=== PATIENT | female | born 1985 | race Caucasian/White ===

== ENCOUNTER 2017-03-27 22:33 | Emergency (ER) | payer OTHER ==
[~2017-03-27] VITALS: Ht 170.2 cm; Wt 86.2 kg
[2017-03-27] MEDS ORDERED: DEXAMETHASONE SOD PHOS 20 MG/5 ML VIAL. PO ONE (23:00)
[2017-03-27] MEDS ORDERED: ALBUTEROL SULFATE 2.5 MG/3 ML NEBU. NEB ONE ×2 (23:00→23:45)
[2017-03-27] MEDS ORDERED: OXYMETAZOLINE 0.05% NASAL SPRAY 30ML BOTTLE. NS ONE (23:00)
[2017-03-27] MEDS ORDERED: IPRATRPIUM/ALBUTEROL 0.5/2.5MG 3 ML NEBU. NEB ONE (23:00)
--- NOTE | 2017-03-27 23:04 | PHYS DOC ---
Past Medical History Past Medical History: No Pertinent History Past Surgical History: Additional Information: 0.5 PPD Alcohol Use: None Drug Use: None Adult General Chief Complaint Chief Complaint: SHORTNESS OF BREATH HPI HPI Patient is a 31 year old female presenting to the emergency department for evaluation of cough and shortness of breath. She is a smoker and says that she has had a nonproductive cough for the past one week and then for the past 2 days she has been feeling more short of breath. She says that she has been smoking less. She denies any fevers chills nausea vomiting or other systemic symptoms. She says that she is healthy otherwise. She denies any inherent lung pathology such as asthma or COPD. She denies any prior pulmonary emboli. Review of Systems Review of Systems Constitutional: Denies fever or chills [] Eyes: Denies change in visual acuity, redness, or eye pain [] HENT: Denies nasal congestion or sore throat [] Respiratory: + cough and shortness of breath [] Cardiovascular: No additional information not addressed in HPI [] GI: Denies abdominal pain, nausea, vomiting, bloody stools or diarrhea [] : Denies dysuria or hematuria [] Musculoskeletal: Denies back pain or joint pain [] Integument: Denies rash or skin lesions [] Neurologic: Denies headache, focal weakness or sensory changes [] Current Medications Current Medications Current Medications Medications (Trade) Dose Ordered Sig/Francesco Start Time Stop Time Status Last Admin Dose Admin Albuterol Sulfate (Ventolin Neb Soln) 7.5 mg 1X ONCE 03/27/17 23:45 03/27/17 23:46 DC Albuterol/ Ipratropium (Duoneb) 3 ml 1X ONCE 03/27/17 23:00 03/27/17 23:01 DC 03/27/17 22:59 3 ML Azithromycin (Zithromax) 500 mg 1X ONCE 03/27/17 23:45 03/27/17 23:46 DC 03/27/17 23:39 500 MG Dexamethasone Sodium Phosphate (Decadron) 10 mg 1X ONCE 03/27/17 23:00 03/27/17 23:01 DC 03/27/17 23:00 10 MG Diphenhydramine HCl (Benadryl) 25 mg 1X ONCE 03/27/17 23:45 03/27/17 23:46 DC 03/27/17 23:39 25 MG Oxymetazoline HCl (Afrin) 2 spray 1X ONCE 03/27/17 23:00 03/27/17 23:01 DC 03/27/17 23:00 2 SPRAY Allergies Allergies Allergies Coded Allergies Type Severity Reaction Last Updated Verified No Known Drug Allergies 03/27/17 No Physical Exam Physical Exam Constitutional: Well developed, well nourished, no acute distress, non-toxic appearance. [] HENT: Normocephalic, atraumatic, bilateral external ears normal, oropharynx moist, no oral exudates, nose normal. [] Eyes: PERRLA, EOMI, conjunctiva normal, no discharge. [] Neck: Normal range of motion, no tenderness, supple, no stridor. [] Cardiovascular:Heart rate regular rhythm, no murmur [] Lungs & Thorax: Bilateral breath sounds diminished bilaterally with inspiratory and expiratory wheezing. Abdomen: Bowel sounds normal, soft, no tenderness, no masses, no pulsatile masses. [] Skin: Warm, dry, no erythema, no rash. [] Back: No tenderness, no CVA tenderness. [] Extremities: No tenderness, no cyanosis, no clubbing, ROM intact, no edema. [] Neurologic: Alert and oriented X 3, normal motor function, normal sensory function, no focal deficits noted. [] Current Patient Data Vital Signs Vital Signs Date Time Temp Pulse Resp B/P (MAP) Pulse Ox O2 Delivery O2 Flow Rate FiO2 03/27/17 23:05 95 Room Air 03/27/17 22:40 98.6 91 18 140/83 (102) 98.6 EKG EKG [] Radiology/Procedures Radiology/Procedures Chest x-ray shows normal mediastinum normal heart size with no free air or opacity Course & Med Decision Making Course & Med Decision Making Patient is somewhat hypoxic on room air she is anywhere from 87-92% however her lung sounds are quite abnormal. I do not suspect pulmonary embolism as the etiology to her shortness of breath. After a DuoNeb and 5 mg of albuterol and a by mouth Decadron she has improved aeration of her lungs but still definite wheezing and restriction. HerOption saturation continues to be in the 87-90% range but she appears in no acute distress and admits that she feels much better. I will order an hour-long continuous albuterol treatment. I will transfer care to Dr. Muhammad and have him dispositioned patient appropriately. Dragon Disclaimer Dragon Disclaimer This electronic medical record was generated, in whole or in part, using a voice recognition dictation system. Departure Departure Impression: Primary Impression: URI (upper respiratory infection) Additional Impression: Wheezing Disposition: HOME, SELF-CARE Referrals: NO PCP (PCP) Problem Qualifiers Primary Impression: URI (upper respiratory infection) URI type: unspecified viral URI Qualified Codes: J06.9 - Acute upper respiratory infection, unspecified; B97.89 - Other viral agents as the cause of diseases classified elsewhere VANNESSA HURD DO March 27, 2017 23:04
[2017-03-27] MEDS ORDERED: AZITHROMYCIN 250 MG TABLET. PO ONE (23:45)
[2017-03-27] MEDS ORDERED: diphenhydrAMINE HCL 25 MG CAPSULE PO ONE (23:45)
[2017-03-28 01:30] VITALS: BP 149/79
[2017-03-28] MEDS ORDERED: RACEPINEPHRINE 2.25% 0.5 ML NEBU. NEB ONE (01:45)
--- NOTE | 2017-03-28 08:46 | RAD ---
Examination: 2 views of the chest History: History of cough, shortness of breath Comparison: 03/04/2007 Findings: The cardiomediastinal silhouette grossly appears unremarkable. Mild prominent appearing bilateral perihilar bronchial vascular markings probably bronchitis. Impression: Probable bronchitis
== END 2017-03-28 02:11 | disposition home or self-care (01) ==
LOC: ER 22:33
DX: J06.9 Acute upper respiratory infection, unspecified (principal); R06.2 Wheezing; J45.901 Unspecified asthma with (acute) exacerbation; F17.200 Nicotine dependence, unspecified, uncomplicated
CPT/HCPCS: 71020; 94250; 94640; 94644; 99285; J1100; J7620; Q0144; Q0163

== ENCOUNTER 2017-04-13 02:14 | Emergency (ER) | payer OTHER ==
[~2017-04-13] VITALS: Ht 170.2 cm; Wt 86.2 kg
[2017-04-13] MEDS ORDERED: IV NORMAL SALINE 1000ML BAG 1,000 ML IV SCH (02:48)
[2017-04-13] MEDS ORDERED: ALBUTEROL SULFATE 2.5 MG/3 ML NEBU. ONE (02:50)
[2017-04-13] MEDS ORDERED: IPRATRPIUM/ALBUTEROL 0.5/2.5MG 3 ML NEBU. ONE (02:50)
[2017-04-13] MEDS ORDERED: ALBUTEROL SULFATE 2.5 MG/3 ML NEBU. CONT NEB ONE (03:00)
[2017-04-13] MEDS ORDERED: methylPREDNISolone SOD SUCC PF 125 MG/2 ML VIAL. IV ONE (03:00)
[2017-04-13] MEDS ORDERED: IPRATRPIUM/ALBUTEROL 0.5/2.5MG 3 ML NEBU. NEB ONE (03:00)
[2017-04-13 03:42] LABS: BASO # 0.1 x10^3/uL (0.0-0.2); BASO % 1 % (0-3); EOS % 5 % (0-3); HEMATOCRIT 42.4 % (36.0-47.0); HEMOGLOBIN 14.1 g/dL (12.0-15.5); LYMPH # 3.2 x10^3/uL (1.0-4.8); LYMPH % 26 % (24-48); MEAN CORPUSCULAR HEMOGLOBIN 30 pg (25-35); MEAN CORPUSCULAR HGB CONC 33 g/dL (31-37); MEAN CORPUSCULAR VOLUME 91 fL (79-100); MONO % 5 % (0-9); NEUT % 63 % (31-73); PLATELET COUNT 251 x10^3/uL (140-400); RED BLOOD COUNT 4.68 x10^6/uL (3.50-5.40); RED CELL DISTRIBUTION WIDTH 13.7 % (11.5-14.5); WHITE BLOOD COUNT 12.1 x10^3/uL (4.0-11.0)
[2017-04-13 03:48] LABS: BILIRUBIN,URINE NEGATIVE (NEG); GLUCOSE,URINE NEGATIVE (NEG); NITRITE,URINE NEGATIVE (NEG); PH,URINE 6.5; PROTEIN,URINE NEGATIVE (NEG-TRACE); UROBILINOGEN,URINE 0.2 mg/dL (0.2 mg/dL)
[2017-04-13 03:55] LABS: BACTERIA,URINE MANY /HPF (0-FEW); RBC,URINE 0 /HPF (0-2); SQUAMOUS EPITHELIAL CELL,UR MOD /LPF
[2017-04-13 03:57] LABS: CALCIUM 8.8 mg/dL (8.5-10.1); CREATININE 0.9 mg/dL (0.6-1.0); POTASSIUM 3.6 mmol/L (3.5-5.1)
[2017-04-13 04:02] LABS: ALBUMIN 3.6 g/dL (3.4-5.0); TOTAL BILIRUBIN 0.3 mg/dL (0.2-1.0); TOTAL PROTEIN 7.2 g/dL (6.4-8.2)
[2017-04-13 04:30] VITALS: BP 143/85
--- NOTE | 2017-04-13 04:33 | PHYS DOC ---
Past Medical History Past Medical History: No Pertinent History Past Surgical History: Alcohol Use: None Drug Use: None Adult General Chief Complaint Chief Complaint: Congestion HPI HPI Patient is a 31 year old female who presents with complaint of cough and shortness of breath. Patient states that she was seen 2 weeks ago and diagnosed with an upper respiratory tract infection and asthma-like symptoms. Patient was placed on 5 days of prednisone and given an inhaler. Patient states her symptoms have not improved and patient started getting worsening symptoms over the past 3-4 days. Patient denies history of asthma. Patient does admit to history of smoking, stating that she smokes approximately half a pack of cigarettes a day. Patient denies fevers or chest pain. Patient has been taking cough medication with no relief in symptoms. Review of Systems Review of Systems Constitutional: Denies fever or chills [] Eyes: Denies change in visual acuity, redness, or eye pain [] HENT: Denies nasal congestion or sore throat [] Respiratory: Cough, shortness of breath [] Cardiovascular: Denies chest pain or edema [] GI: Denies abdominal pain, nausea, vomiting, bloody stools or diarrhea [] : Denies dysuria or hematuria [] Musculoskeletal: Denies back pain or joint pain [] Integument: Denies rash or skin lesions [] Neurologic: Denies headache, focal weakness or sensory changes [] Current Medications Current Medications Current Medications Medications (Trade) Dose Ordered Sig/Francesco Start Time Stop Time Status Last Admin Dose Admin Albuterol Sulfate (Ventolin Neb Soln) 7.5 mg 1X ONCE 04/13/17 03:00 04/13/17 03:01 DC 04/13/17 02:59 7.5 MG Albuterol/ Ipratropium (Duoneb) 3 ml 1X ONCE 04/13/17 03:00 04/13/17 03:01 DC 04/13/17 02:59 3 ML Methylprednisolone Sodium Succinate (SOLU-Medrol 125MG VIAL) 125 mg 1X ONCE 04/13/17 03:00 04/13/17 03:01 DC 04/13/17 03:19 125 MG Sodium Chloride 1,000 ml @ 1,000 mls/hr Q1H 04/13/17 02:48 04/13/17 03:47 DC 04/13/17 03:19 1,000 MLS/HR Allergies Allergies Allergies Coded Allergies Type Severity Reaction Last Updated Verified No Known Drug Allergies 03/27/17 No Physical Exam Physical Exam Constitutional: Alert, afebrile, appears in moderate esterase distress. [] HENT: Normocephalic, atraumatic, bilateral external ears normal, oropharynx moist, no oral exudates, nose normal. [] Eyes: PERRLA, EOMI, conjunctiva normal, no discharge. [] Neck: Normal range of motion, no tenderness, supple, no stridor. [] Cardiovascular:Heart rate regular rhythm, no murmur [] Lungs & Thorax: Moderate to severe restriction of air movement bilaterally, expiratory wheezes bilaterally, no rales [] Abdomen: Bowel sounds normal, soft, no tenderness, no masses, no pulsatile masses. [] Skin: Warm, dry, no erythema, no rash. [] Back: No tenderness, no CVA tenderness. [] Extremities: No tenderness, no cyanosis, no clubbing, ROM intact, no edema. [] Neurologic: Alert and oriented X 3, normal motor function, normal sensory function, no focal deficits noted. [] Current Patient Data Vital Signs Vital Signs Date Time Temp Pulse Resp B/P (MAP) Pulse Ox O2 Delivery O2 Flow Rate FiO2 04/13/17 02:56 87 Room Air 04/13/17 02:45 98.3 77 18 126/82 (97) 98.3 Lab Values Laboratory Tests Test 04/13/17 02:16 04/13/17 03:04 04/13/17 03:10 POC Urine HCG, Qualitative Hcg negative (Negative) White Blood Count 12.1 x10^3/uL (4.0-11.0) H Red Blood Count 4.68 x10^6/uL (3.50-5.40) Hemoglobin 14.1 g/dL (12.0-15.5) Hematocrit 42.4 % (36.0-47.0) Mean Corpuscular Volume 91 fL (79-100) Mean Corpuscular Hemoglobin 30 pg (25-35) Mean Corpuscular Hemoglobin Concent 33 g/dL (31-37) Red Cell Distribution Width 13.7 % (11.5-14.5) Platelet Count 251 x10^3/uL (140-400) Neutrophils (%) (Auto) 63 % (31-73) Lymphocytes (%) (Auto) 26 % (24-48) Monocytes (%) (Auto) 5 % (0-9) Eosinophils (%) (Auto) 5 % (0-3) H Basophils (%) (Auto) 1 % (0-3) Neutrophils # (Auto) 7.6 x10^3uL (1.8-7.7) Lymphocytes # (Auto) 3.2 x10^3/uL (1.0-4.8) Monocytes # (Auto) 0.7 x10^3/uL (0.0-1.1) Eosinophils # (Auto) 0.6 x10^3/uL (0.0-0.7) Basophils # (Auto) 0.1 x10^3/uL (0.0-0.2) Sodium Level 144 mmol/L (136-145) Potassium Level 3.6 mmol/L (3.5-5.1) Chloride Level 106 mmol/L (98-107) Carbon Dioxide Level 27 mmol/L (21-32) Anion Gap 11 (6-14) Blood Urea Nitrogen 10 mg/dL (7-20) Creatinine 0.9 mg/dL (0.6-1.0) Estimated GFR (Cockcroft-Gault) 74.0 BUN/Creatinine Ratio 11 (6-20) Glucose Level 120 mg/dL (70-99) H Calcium Level 8.8 mg/dL (8.5-10.1) Total Bilirubin 0.3 mg/dL (0.2-1.0) Aspartate Amino Transferase (AST) 18 U/L (15-37) Alanine Aminotransferase (ALT) 28 U/L (14-59) Alkaline Phosphatase 79 U/L (46-116) Total Protein 7.2 g/dL (6.4-8.2) Albumin 3.6 g/dL (3.4-5.0) Albumin/Globulin Ratio 1.0 (1.0-1.7) Urine Collection Type Unknown Urine Color Yellow Urine Clarity Clear Urine pH 6.5 Urine Specific [place] 1.025 Urine Protein Negative mg/dL (NEG-TRACE) Urine Glucose (UA) Negative mg/dL (NEG) Urine Ketones (Stick) Negative mg/dL (NEG) Urine Blood Negative (NEG) Urine Nitrite Negative (NEG) Urine Bilirubin Negative (NEG) Urine Urobilinogen Dipstick 0.2 mg/dL (0.2 mg/dL) Urine Leukocyte Esterase Small (NEG) Urine RBC 0 /HPF (0-2) Urine WBC 5-10 /HPF (0-4) Urine Squamous Epithelial Cells Mod /LPF Urine Bacteria Many /HPF (0-FEW) Urine Mucus Mod /LPF Laboratory Tests 04/13/17 03:04 Laboratory Tests 04/13/17 03:04 EKG EKG Interpreted by me: Heart rate 73, sinus rhythm, normal intervals, normal axis, no acute ST/T-wave abnormalities present Radiology/Procedures Radiology/Procedures One view AP chest x-ray interpreted by me: No infiltrate, no effusions, normal cardiac silhouette [] Course & Med Decision Making Course & Med Decision Making Pertinent Labs and Imaging studies reviewed. (See chart for details) Patient was found to have an O2 sat on room air of 87% on arrival was placed on supplemental oxygen. The patient was given an hour-long breathing treatment and IV Solu-Medrol in the emergency department. On reevaluation post treatment, the patient had a oxygen saturation of 93% and patient's breath sounds have improved after treatment. The patient does not wish to be admitted the hospital and would like to proceed with outpatient therapy. The patient will be placed on an extended prednisone taper and patient will be started on doxycycline due to persistence of symptoms and possibility for developing atypical pneumonia. Advise follow-up in 3 days a primary doctor and return to emergency department for any worsening symptoms. Patient voiced understanding and in agreement with treatment plan. Dragon Disclaimer Dragon Disclaimer This electronic medical record was generated, in whole or in part, using a voice recognition dictation system. Departure Departure Impression: Primary Impression: Respiratory distress Additional Impression: Atypical pneumonia Disposition: 01 HOME, SELF-CARE Condition: IMPROVED Referrals: NO PCP (PCP) Patient Instructions: Asthma, Acute Bronchospasm, Pneumonia, Adult Additional Instructions: Follow-up to primary doctor in 3 days for reevaluation. Return to the emergency department for any worsening symptoms. Scripts Doxycycline Hyclate (DOXYCYCLINE HYCLATE) 100 Mg Capsule 1 CAP PO BID, #20 CAP Prov: BALDEV EGAN MD 04/13/17 Albuterol Sulfate (PROAIR HFA INHALER) 8.5 Gm Hfa.aer.ad 2 PUFF INH Q4-6HRS Y for SHORTNESS OF BREATH, #1 INHALER 0 Refills Prov: BALDEV EGAN MD 04/13/17 Prednisone (PREDNISONE) 10 Mg Tablet 10 MG PO UD for PREDNISONE TAPER, #39 TAB 0 Refills Take 3 tablets by mouth twice a day for 3 days, then take 2 tablets by mouth twice a day for 3 days, then take 1 tablet by mouth twice a day for 3 days, then take 1 tablet by mouth daily x 3 days, then stop. Prov: BALDEV EGAN MD 04/13/17 Problem Qualifiers BALDEV EGAN MD April 13, 2017 04:32
[2017-04-13] MEDS ORDERED: DOXY100C2 PO (04:51)
[2017-04-13] MEDS ORDERED: PRED-220 PO (04:51)
[2017-04-13] MEDS ORDERED: PROAIR HFA8.5 GM INH (04:51)
--- NOTE | 2017-04-13 07:36 | EKG ---
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
--- NOTE | 2017-04-13 07:46 | RAD ---
Portable AP chest. History: Cough, short of breath AP view was taken of the chest. Lungs are free of infiltrates. Heart is normal in size. There is no pleural effusion. Impression: 1. No acute infiltrates.
== END 2017-04-13 05:05 | disposition home or self-care (01) ==
LOC: ER 02:14
DX: R06.00 Dyspnea, unspecified (principal); J18.9 Pneumonia, unspecified organism
CPT/HCPCS: 36415; 71010; 80053; 81001; 81025; 85027; 87086; 93005; 94250; 94644; 96361; 96374; 99285; J2930; J7030; J7620; 84703; 96360

== ENCOUNTER 2017-05-14 14:16 | Observation (INO) | payer OTHER ==
[~2017-05-14] VITALS: Ht 170.2 cm; Wt 79.8 kg
[~2017-05-14 14:16] MED LIST: DOXY100C2 PO; PRED-220 PO; PROAIR HFA8.5 GM INH
[2017-05-14] MEDS ORDERED: ALBUTEROL SULFATE 2.5 MG/3 ML NEBU. CONT NEB ONE (14:45)
[2017-05-14] MEDS ORDERED: IPRATRPIUM/ALBUTEROL 0.5/2.5MG 3 ML NEBU. NEB ONE (14:45)
[2017-05-14] MEDS ORDERED: DEXAMETHASONE SOD PHOS 20 MG/5 ML VIAL. IV ONE (14:45)
[2017-05-14 15:11] LABS: BASO # 0.1 x10^3/uL (0.0-0.2); BASO % 1 % (0-3); EOS % 6 % (0-3); HEMOGLOBIN 14.6 g/dL (12.0-15.5); LYMPH # 2.3 x10^3/uL (1.0-4.8); LYMPH % 25 % (24-48); MEAN CORPUSCULAR HEMOGLOBIN 30 pg (25-35); MEAN CORPUSCULAR HGB CONC 34 g/dL (31-37); MEAN CORPUSCULAR VOLUME 90 fL (79-100); MONO % 8 % (0-9); NEUT % 61 % (31-73); PLATELET COUNT 288 x10^3/uL (140-400); RED CELL DISTRIBUTION WIDTH 13.6 % (11.5-14.5)
[2017-05-14 15:30] LABS: CALCIUM 8.9 mg/dL (8.5-10.1); CREATININE 0.9 mg/dL (0.6-1.0); POTASSIUM 3.8 mmol/L (3.5-5.1)
--- NOTE | 2017-05-14 15:31 | EKG ---
[facility] [address] [place] [address] Test Date: 2017-05-14 Test Time: 14:28:58 Pat Name: KASSIE RODRIGUEZ Department: Room: Gender: F Demand Inspector: : 1985 Requested By: NASREEN SOLIMAN Order Number: [id number] Reading MD: Aleena Sandhu Measurements Intervals [place] Rate: 80 P: 33 [place]: 134 QRS: 57 QRSD: 80 T: 0 QT: 394 QTc: 458 Interpretive Statements SINUS RHYTHM NORMAL EKG Electronically Signed On 05-16-2017 14:10:30 CDT by Aleena Sandhu
--- NOTE | 2017-05-14 15:40 | PHYS DOC ---
Past Medical History Past Medical History: Pancreatitis Past Surgical History: Additional Past Surgical Histo: X2 Additional Information: 0.5 PPD Alcohol Use: None Drug Use: None Adult General Chief Complaint Chief Complaint: SHORTNESS OF BREATH HPI HPI Patient is a 31 year old female with history of smoking and shortness of breath who presents today with intermittent episodes of shortness of breath for the last 1 month. Patient states she was seen in the ED on April 13 for the same complaint and was sent home with a tapered dose of prednisone. Patient states she was also sent home with albuterol inhaler. Patient states she ran out of her inhaler 2 days ago. Patient states she does not follow up with a PCP because she does not have one. Patient denies any chest pain. Patient is also complaining of a productive cough for 1 week. Review of Systems Review of Systems Constitutional: Denies fever or chills [] Eyes: Denies change in visual acuity, redness, or eye pain [] HENT: Denies nasal congestion or sore throat [] Respiratory: cough and shortness of breath [] Cardiovascular: No additional information not addressed in HPI [] GI: Denies abdominal pain, nausea, vomiting, bloody stools or diarrhea [] : Denies dysuria or hematuria [] Musculoskeletal: Denies back pain or joint pain [] Integument: Denies rash or skin lesions [] Neurologic: Denies headache, focal weakness or sensory changes [] Endocrine: Denies polyuria or polydipsia [] Current Medications Current Medications Current Medications Medications (Trade) Dose Ordered Sig/Francesco Start Time Stop Time Status Last Admin Dose Admin Albuterol Sulfate (Ventolin Neb Soln) 10 mg 1X ONCE 05/14/17 14:45 05/14/17 14:46 DC 05/14/17 14:47 10 MG Albuterol/ Ipratropium (Duoneb) 3 ml 1X ONCE 05/14/17 14:45 05/14/17 14:46 DC 05/14/17 14:47 3 ML Dexamethasone Sodium Phosphate (Decadron) 10 mg 1X ONCE 05/14/17 14:45 05/14/17 14:46 DC 05/14/17 15:02 10 MG Allergies Allergies Allergies Coded Allergies Type Severity Reaction Last Updated Verified No Known Drug Allergies 03/27/17 No Physical Exam Physical Exam Constitutional: Well developed, well nourished, no acute distress, non-toxic appearance. [] HENT: Normocephalic, atraumatic, bilateral external ears normal, oropharynx moist, no oral exudates, nose normal. [] Eyes: PERRLA, EOMI, conjunctiva normal, no discharge. [] Neck: Normal range of motion, no tenderness, supple, no stridor. [] Cardiovascular:Heart rate regular rhythm, no murmur [] Lungs & Thorax: Diffuse wheezing to bilateral posterior upper and lower lung bases. Wheezing to the anterior upper lung bases, very limited air movement. Abdomen: Bowel sounds normal, soft, no tenderness, no masses, no pulsatile masses. [] Skin: Warm, dry, no erythema, no rash. [] Back: No tenderness, no CVA tenderness. [] Extremities: No tenderness, no cyanosis, no clubbing, ROM intact, no edema. [] Neurologic: Alert and oriented X 3, normal motor function, normal sensory function, no focal deficits noted. [] Psychologic: Affect normal, judgement normal, mood normal. [] Current Patient Data Vital Signs Vital Signs Date Time Temp Pulse Resp B/P (MAP) Pulse Ox O2 Delivery O2 Flow Rate FiO2 05/14/17 15:09 83 29 120/80 (93) 96 Room Air 05/14/17 14:21 98.4 98.4 Lab Values Laboratory Tests Test 05/14/17 14:44 White Blood Count 9.0 x10^3/uL (4.0-11.0) Red Blood Count 4.80 x10^6/uL (3.50-5.40) Hemoglobin 14.6 g/dL (12.0-15.5) Hematocrit 43.0 % (36.0-47.0) Mean Corpuscular Volume 90 fL (79-100) Mean Corpuscular Hemoglobin 30 pg (25-35) Mean Corpuscular Hemoglobin Concent 34 g/dL (31-37) Red Cell Distribution Width 13.6 % (11.5-14.5) Platelet Count 288 x10^3/uL (140-400) Neutrophils (%) (Auto) 61 % (31-73) Lymphocytes (%) (Auto) 25 % (24-48) Monocytes (%) (Auto) 8 % (0-9) Eosinophils (%) (Auto) 6 % (0-3) H Basophils (%) (Auto) 1 % (0-3) Neutrophils # (Auto) 5.5 x10^3uL (1.8-7.7) Lymphocytes # (Auto) 2.3 x10^3/uL (1.0-4.8) Monocytes # (Auto) 0.7 x10^3/uL (0.0-1.1) Eosinophils # (Auto) 0.5 x10^3/uL (0.0-0.7) Basophils # (Auto) 0.1 x10^3/uL (0.0-0.2) Sodium Level 142 mmol/L (136-145) Potassium Level 3.8 mmol/L (3.5-5.1) Chloride Level 107 mmol/L (98-107) Carbon Dioxide Level 25 mmol/L (21-32) Anion Gap 10 (6-14) Blood Urea Nitrogen 7 mg/dL (7-20) Creatinine 0.9 mg/dL (0.6-1.0) Estimated GFR (Cockcroft-Gault) 74.0 Glucose Level 97 mg/dL (70-99) Calcium Level 8.9 mg/dL (8.5-10.1) Creatine Kinase 213 U/L (26-192) H Creatine Kinase MB (Mass) 2.1 ng/mL (0.0-3.6) Creatine Kinase MB Relative Index 1.0 % (0-4) Troponin I Quantitative < 0.017 ng/mL (0.000-0.055) Ethyl Alcohol Level < 10 mg/dL (0-10) Laboratory Tests 05/14/17 14:44 Laboratory Tests 05/14/17 14:44 EKG EKG 14:[address] Degroot sinus rhythm, inverted nonspecific T waves on lead III and aVF. Radiology/Procedures Radiology/Procedures [] Course & Med Decision Making Course & Med Decision Making Pertinent Labs and Imaging studies reviewed. (See chart for details) Shortness of breath has been going on for month and a cough for 1 week. She is a smoker. We did encourage to consider smoking cessation. EKG interpreted by Dr. Degroot sinus rhythm, inverted nonspecific T waves on lead III and aVF. Patient was short of air on arrival to the ED, barely moving air and wheezing diffusely. Chest x-ray interpreted by radiologist as negative for any acute findings. CBC BMP CK-MB and troponin were normal. Patient was given a DuoNeb treatment and Decadron IV in the ED. She continued to complain of shortness of breath. She was still wheezing after one hour treatment. Her O2 sats improved from 92% on arrival to the ED to 97%. Consulted with Dr. Goodwin and patient was admitted Dragon Disclaimer Dragon Disclaimer This electronic medical record was generated, in whole or in part, using a voice recognition dictation system. Departure Departure Impression: Primary Impression: Asthma exacerbation Additional Impressions: Smoking addiction Shortness of breath Disposition: ADMITTED INPATIENT Admitting Physician: Lo Goodwin Condition: STABLE Referrals: NO PCP (PCP) Problem Qualifiers NASREEN SOLIMAN MARKETING SALES CONSULTANT May 14, 2017 15:40
[2017-05-14 15:46] LABS: CKMB MASS 2.1 ng/mL (0.0-3.6)
--- NOTE | 2017-05-14 15:50 | RAD ---
Indication: Shortness of breath. Time of exam 1540 hours. Correlation is made with prior study from 04/13/2017 FINDINGS: The heart size is normal. The lungs are clear. No pleural effusion or pneumothorax is identified. The pulmonary vascularity is normal. IMPRESSION: No acute abnormality detected.
[2017-05-14] MEDS ORDERED: ONDANSETRON PF 4 MG/2 ML VIAL. IV PRN (16:45)
[2017-05-14] MEDS ORDERED: ACETAMINOPHEN 325 MG TABLET. PO PRN (16:45)
[2017-05-14] MEDS ORDERED: IBUPROFEN 800 MG TABLET. PO PRN (16:45)
[2017-05-14 18:22] LABS: BARBITURATES NEG (NEG); BENZODIAZEPINES NEG (NEG); CANNABINOIDS NEG (NEG); COCAINE NEG (NEG); METHADONE NEG (NEG); OPIATES NEG (NEG); PHENCYCLIDINE NEG (NEG)
[2017-05-14 18:45] VITALS: BP 111/80
[2017-05-14] MEDS ORDERED: IPRATRPIUM/ALBUTEROL 0.5/2.5MG 3 ML NEBU. NEB SCH (20:00)
[2017-05-14] MEDS ORDERED: BUDESONIDE 0.5 MG/2 ML NEBU. NEB ONE (21:00)
[2017-05-14] MEDS: BENZONATATE 100 MG CAPSULE. PO PRN (21:53)
[2017-05-14] MEDS: methylPREDNISolone SOD SUCC PF 125 MG/2 ML VIAL. IV SCH (21:54)
[2017-05-14] MEDS ORDERED: ALBUTEROL SULFATE 2.5 MG/3 ML NEBU. NEB PRN (22:00)
[2017-05-14] MEDS: IPRATRPIUM/ALBUTEROL 0.5/2.5MG 3 ML NEBU. NEB SCH (22:00)
--- NOTE | 2017-05-14 22:04 | PDOC1 ---
History and Physical Date of Admission Date of Admission DATE: 05/14/17 TIME: 21:56 Identification/Chief Complaint Chief Complaint dyspnea, wheeze Problems: Source Source: Chart review, Patient History of Present Illness History of Present Illness Ms. Nguyen, is a 31 year old female admit from ER for acute dyspnea. She has been to the ER mult times, was last there april 13, given prednisone taper, albuterol inhaler, she reports the inhaler "has run out' She has not established care with a PCP and does cont. to smoke. She works at [employer], not in a smoking area, but where things are steam cleaned, and this normally does not bother her. Past Medical History Past Medical History EtOH pancreatitis years ago Pulmonary: Other GI: No pertinent hx Heme/Onc: No pertinent hx Hepatobiliary: No pertinent hx Psych: Addictions (cig) Rheumatologic: No pertinent hx Infectious disease: No pertinent hx ENT: No pertinent hx Endocrine: No pertinent hx Family History Family History: Asthma (reports 4 persons in the room with her had asthma) Social History Smoke: <1 pack per day ALCOHOL: none Drugs: None Current Problem List Problem List Problems Medical Problems: (1) Asthma exacerbation Status: Acute (2) Shortness of breath Status: Acute (3) Smoking addiction Status: Acute Problems: Current Medications Current Medications Current Medications Dexamethasone Sodium Phosphate (Decadron) 10 mg 1X ONCE IV Last administered on 05/14/17 15:02; Start 05/14/17 at 14:45; Stop 05/14/17 at 14:46; Status DC Albuterol/ Ipratropium (Duoneb) 3 ml 1X ONCE NEB Last administered on 14:47; Start 05/14/17 at 14:45; Stop 05/14/17 at 14:46; Status DC Albuterol Sulfate (Ventolin Neb Soln) 10 mg 1X ONCE CONT NEB Last administered on 05/14/17 14:47; Start 05/14/17 at 14:45; Stop 05/14/17 at 14:46 ; Status DC Ondansetron HCl (Zofran) 4 mg PRN Q8HRS PRN IV NAUSEA/VOMITING; Start 05/14/17 at 16:45; Stop 05/15/17 at 16:44 Acetaminophen (Tylenol) 650 mg PRN Q4HRS PRN PO FEVER; Start 05/14/17 at 16:45 ; Stop 05/15/17 at 16:44 Albuterol/ Ipratropium (Duoneb) 3 ml RTQID NEB Last administered on 05/14/17 19:32; Start 05/14/17 at 20:00; Stop 05/14/17 at 21:01; Status DC Methylprednisolone Sodium Succinate (SOLU-Medrol 125MG VIAL) 80 mg Q8HRS IV Last administered on 05/14/17 21:54; Start 05/14/17 at 22:00 Ibuprofen (Motrin) 800 mg PRN Q8HRS PRN PO pain; Start 05/14/17 at 16:45 Benzonatate (Tessalon Perle) 100 mg PRN TID PRN PO cough Last administered on 21:53; Start 05/14/17 at 16:45 Albuterol/ Ipratropium (Duoneb) 3 ml Q4HRS W/A NEB ; Start 05/14/17 at 22:00; Stop 05/15/17 at 21:59 Budesonide (Pulmicort) 0.5 mg RTBID NEB ; Start 05/15/17 at 08:00 Budesonide (Pulmicort) 0.5 mg 1X ONCE NEB ; Start 05/14/17 at 21:00; Stop 05/14 at 21:04; Status DC Active Scripts Active Doxycycline Hyclate 100 Mg Capsule 1 Cap PO BID Proair Hfa Inhaler (Albuterol Sulfate) 8.5 Gm Hfa.aer.ad 2 Puff INH Q4-6HRS PRN Prednisone 10 Mg Tablet 10 Mg PO UD Take 3 tablets by mouth twice a day for 3 days, then take 2 tablets by mouth twice a day for 3 days, then take 1 tablet by mouth twice a day for 3 days, then take 1 tablet by mouth daily x 3 days, then stop. Allergies Allergies: Coded Allergies: No Known Drug Allergies (Unverified , 03/27/17) ROS General: No: Chills, Night Sweats, Fatigue, Malaise, Appetite, Other PSYCHOLOGICAL ROS: No: Anxiety, Behavioral Disorder, Concentration difficultie , Decreased libido, Depression, Disorientation, Hallucinations, Hostility, Irritablity, Memory difficulties, Mood Swings, Obsessive thoughts, Physical abuse, Sexual abuse, Sleep disturbances, Suicidal ideation, Other Eyes: No Blurry vision, No Decreased vision, No Double vision, No Dry eyes, No Excessive tearing, No Eye Pain, No Itchy Eyes, No Loss of vision, No Photophobia , No Scotomata, No Uses contacts, No Uses glasses, No Other HEENT: No: Heacaches, Visual Changes, Hearing change, Nasal congestion, Nasal discharge, Oral lesions, Sinus pain, Sore Throat, Epistaxis, Sneezing, Snoring, Tinnitus, Vertigo, Vocal changes, Other Respiratory: YES: Cough, Shortness of breath, SOB with excertion, Tachypnea, Wheezing, No: Hemoptysis, Orthopnea, Pleuritic Pain, Sputum Changes, Stridor, Other Cardiovascular: No Chest Pain, No Palpitations, No Orthopnea, No Paroxysmal Noc. Dyspnea, No Edema, No Lt Headedness, No Other Gastrointestinal: No Nausea, No Vomiting, No Abdominal Pain, No Diarrhea, No Constipation, No Melena, No Hematochezia, No Other Genitourinary: No Dysuria, No Frequency, No Incontinence, No Hematuria, No Retention, No Discharge, No Urgency, No Pain, No Flank Pain, No Other, No , No , No , No , No , No , No Musculoskeletal: No Gait Disturbance, No Joint Pain, No Joint Stiffness, No Joint Swelling, No Muscle Pain, No Muscular Weakness, No Pain In:, No Swelling In:, No Other Neurological: No Behavorial Changes, No Bowel/Bladder ControlChng, No Confusion , No Dizziness, No Gait Disturbance, No Headaches, No Impaired Coord/balance, No Memory Loss, No Numbness/Tingling, No Seizures, No Speech Problems, No Tremors, No Visual Changes, No Weakness, No Other Skin: No Dry Skin, No Eczema, No Hair Changes, No Lumps, No Mole Changes, No Mottling, No Nail Changes, No Pruritus, No Rash, No Skin Lesion Changes, No Other, No Acne Physical Exam General: Alert, Oriented X3, Cooperative HEENT: Atraumatic, PERRLA Lungs: Other (limited vol. marked wheezing, good effort, no cough induced with deep inspiration) Abdomen: Normal bowel sounds, Soft Rectal Exam: not examined Extremities: No clubbing, No edema, Normal pulses Skin: No rashes, No breakdown Neuro: Normal gait, Normal speech, Normal tone, Sensation intact Psych/Mental Status: Mental status NL, Mood NL Vitals Vitals Vital Signs Date Time Temp Pulse Resp B/P (MAP) Pulse Ox O2 Delivery O2 Flow Rate FiO2 05/14/17 19:36 94 05/14/17 17:54 84 31 119/77 (91) Room Air 05/14/17 14:21 98.4 98.4 Labs Labs Laboratory Tests Test 05/14/17 14:44 05/14/17 18:07 White Blood Count 9.0 x10^3/uL (4.0-11.0) Red Blood Count 4.80 x10^6/uL (3.50-5.40) Hemoglobin 14.6 g/dL (12.0-15.5) Hematocrit 43.0 % (36.0-47.0) Mean Corpuscular Volume 90 fL (79-100) Mean Corpuscular Hemoglobin 30 pg (25-35) Mean Corpuscular Hemoglobin Concent 34 g/dL (31-37) Red Cell Distribution Width 13.6 % (11.5-14.5) Platelet Count 288 x10^3/uL (140-400) Neutrophils (%) (Auto) 61 % (31-73) Lymphocytes (%) (Auto) 25 % (24-48) Monocytes (%) (Auto) 8 % (0-9) Eosinophils (%) (Auto) 6 % (0-3) Basophils (%) (Auto) 1 % (0-3) Neutrophils # (Auto) 5.5 x10^3uL (1.8-7.7) Lymphocytes # (Auto) 2.3 x10^3/uL (1.0-4.8) Monocytes # (Auto) 0.7 x10^3/uL (0.0-1.1) Eosinophils # (Auto) 0.5 x10^3/uL (0.0-0.7) Basophils # (Auto) 0.1 x10^3/uL (0.0-0.2) Sodium Level 142 mmol/L (136-145) Potassium Level 3.8 mmol/L (3.5-5.1) Chloride Level 107 mmol/L (98-107) Carbon Dioxide Level 25 mmol/L (21-32) Anion Gap 10 (6-14) Blood Urea Nitrogen 7 mg/dL (7-20) Creatinine 0.9 mg/dL (0.6-1.0) Estimated GFR (Cockcroft-Gault) 74.0 Glucose Level 97 mg/dL (70-99) Calcium Level 8.9 mg/dL (8.5-10.1) Creatine Kinase 213 U/L (26-192) Creatine Kinase MB (Mass) 2.1 ng/mL (0.0-3.6) Creatine Kinase MB Relative Index 1.0 % (0-4) Troponin I Quantitative < 0.017 ng/mL (0.000-0.055) Ethyl Alcohol Level < 10 mg/dL (0-10) Urine Opiates Screen Neg (NEG) Urine Methadone Screen Neg (NEG) Urine Barbiturates Neg (NEG) Urine Phencyclidine Screen Neg (NEG) Urine Amphetamine/Methamphetamine Neg (NEG) Urine Benzodiazepines Screen Neg (NEG) Urine Cocaine Screen Neg (NEG) Urine Cannabinoids Screen Neg (NEG) Urine Ethyl Alcohol Neg (NEG) Laboratory Tests Test 05/14/17 14:44 05/14/17 18:07 White Blood Count 9.0 x10^3/uL (4.0-11.0) Red Blood Count 4.80 x10^6/uL (3.50-5.40) Hemoglobin 14.6 g/dL (12.0-15.5) Hematocrit 43.0 % (36.0-47.0) Mean Corpuscular Volume 90 fL (79-100) Mean Corpuscular Hemoglobin 30 pg (25-35) Mean Corpuscular Hemoglobin Concent 34 g/dL (31-37) Red Cell Distribution Width 13.6 % (11.5-14.5) Platelet Count 288 x10^3/uL (140-400) Neutrophils (%) (Auto) 61 % (31-73) Lymphocytes (%) (Auto) 25 % (24-48) Monocytes (%) (Auto) 8 % (0-9) Eosinophils (%) (Auto) 6 % (0-3) Basophils (%) (Auto) 1 % (0-3) Neutrophils # (Auto) 5.5 x10^3uL (1.8-7.7) Lymphocytes # (Auto) 2.3 x10^3/uL (1.0-4.8) Monocytes # (Auto) 0.7 x10^3/uL (0.0-1.1) Eosinophils # (Auto) 0.5 x10^3/uL (0.0-0.7) Basophils # (Auto) 0.1 x10^3/uL (0.0-0.2) Sodium Level 142 mmol/L (136-145) Potassium Level 3.8 mmol/L (3.5-5.1) Chloride Level 107 mmol/L (98-107) Carbon Dioxide Level 25 mmol/L (21-32) Anion Gap 10 (6-14) Blood Urea Nitrogen 7 mg/dL (7-20) Creatinine 0.9 mg/dL (0.6-1.0) Estimated GFR (Cockcroft-Gault) 74.0 Glucose Level 97 mg/dL (70-99) Calcium Level 8.9 mg/dL (8.5-10.1) Creatine Kinase 213 U/L (26-192) Creatine Kinase MB (Mass) 2.1 ng/mL (0.0-3.6) Creatine Kinase MB Relative Index 1.0 % (0-4) Troponin I Quantitative < 0.017 ng/mL (0.000-0.055) Ethyl Alcohol Level < 10 mg/dL (0-10) Urine Opiates Screen Neg (NEG) Urine Methadone Screen Neg (NEG) Urine Barbiturates Neg (NEG) Urine Phencyclidine Screen Neg (NEG) Urine Amphetamine/Methamphetamine Neg (NEG) Urine Benzodiazepines Screen Neg (NEG) Urine Cocaine Screen Neg (NEG) Urine Cannabinoids Screen Neg (NEG) Urine Ethyl Alcohol Neg (NEG) VTE Prophylaxis Ordered VTE Prophylaxis Devices: No (obs) VTE Pharmacological Prophylaxi: No Assessment/Plan Assessment/Plan Asthma, acute exacerbation w.o significant hypoxia, lowest Sa02 documented was 88% consult pulm systemic steroids given, taper as able peak flow per shift inhaled steroid, should be discharged on this and likely LABA w. refill of rescue inhaler, RESCUE inhaler needs to be reinforced to her. tobaccoism, cessation discussed, she is now motivated LUCIUS ALLEN MD May 14, 2017 22:03
--- NOTE | 2017-05-14 22:23 | ACF ---
Admission Forms Criteria ASTHMA Clinical Indications for Admission to Inpatient Care (Place 'X' for any and all applicable criteria): Admission is indicated for ANY ONE of the following (1)(2)(3)(4)(5): [ ]I. Absent or markedly diminished breath sounds (silent chest) [X]II. Oxygen saturation < 92% [ ]III. PaCO2 = / > 42 mm Hg (5.6 kPa) [ ]IV. Peak expiratory flow rate < 40% of predicted or personal best after treatment. [ ]V. Peak expiratory flow rate < 33% of predicted or personal before after treatment [ ]. Change in mental status [ ]VII. Ventilatory support required [ ]VIII. PaO2 < 60 mm Hg (8.0 kPa) [ ]IX. Cyanosis [ ]X. Cardiac dysrhythmia (e.g., bradycardia) [ ]XI. Hemodynamic instability [ ]XII. Radiographic evidence of complication requiring inpatient treatment (e.g., pneumonia, pneumothorax) [ ]XIII. Inpatient admission required rather than observation care (also use Asthma: Observation Care guideline as appropriate) because of ANY ONE of the following: [ ]a) Respiratory finding that is severe or persistent (eg, dyspnea, tachypnea, accessory muscle use) [ ]b) Airflow measurements less than 60% of predicted or personal best that persist (e.g., over 24 hours) or worsen despite treatments [ ]c) Supplemental oxygen or respiratory treatments for over 24 hours that are performable only in acute inpatient setting [ ]d) Other condition, treatment or monitoring requiring inpatient admission. Extended stay beyond goal length of stay may be needed for (26)(27)(28): [ ]a) Severe respiratory failure (23) (29) (30) [ ]b) Secondary causes and complications (25) [ ]c) Status asthmaticus [ ]d) Chronic obstructive asthma [ ]e) Older patients (29) [ ]f) Slow resolution [ ]g) Clinically significant exacerbation of comorbidities (eg, pradeep. heart failure, atrial fibrillation) The original [employer] content created by [employer] has been revised. The portions of the content which have been revised are identified through the use of italic text or in bold, and [employer] has neither reviewed nor approved the modified material. All other unmodified content is copyright [facility] (formerly [facility]) Please see references footnoted in the original [facility] edition 2016 Admission Criteria Met?: Yes LESTER NAJERA May 14, 2017 22:23
[2017-05-14 23:40] VITALS: BP 129/73
[2017-05-15 03:00] VITALS: BP 123/76
[2017-05-15 04:44] LABS: BASO % 0 % (0-3); EOS % 0 % (0-3); HEMATOCRIT 44.4 % (36.0-47.0); HEMOGLOBIN 15.1 g/dL (12.0-15.5); LYMPH # 0.8 x10^3/uL (1.0-4.8); LYMPH % 9 % (24-48); MEAN CORPUSCULAR HEMOGLOBIN 30 pg (25-35); MEAN CORPUSCULAR HGB CONC 34 g/dL (31-37); MEAN CORPUSCULAR VOLUME 90 fL (79-100); MONO % 1 % (0-9); NEUT % 90 % (31-73); PLATELET COUNT 306 x10^3/uL (140-400); RED BLOOD COUNT 4.96 x10^6/uL (3.50-5.40); RED CELL DISTRIBUTION WIDTH 13.5 % (11.5-14.5); WHITE BLOOD COUNT 8.7 x10^3/uL (4.0-11.0)
[2017-05-15 05:14] LABS: CALCIUM 9.6 mg/dL (8.5-10.1); CREATININE 0.9 mg/dL (0.6-1.0); POTASSIUM 4.4 mmol/L (3.5-5.1)
[2017-05-15] MEDS: methylPREDNISolone SOD SUCC PF 125 MG/2 ML VIAL. IV SCH ×3 (06:20→20:33)
[2017-05-15 07:00] VITALS: BP 121/74
[2017-05-15 07:57] LABS: PLT ESTIMATE ADEQUATE (ADEQUATE)
[2017-05-15] MEDS: IPRATRPIUM/ALBUTEROL 0.5/2.5MG 3 ML NEBU. NEB SCH ×5 (08:06→19:56)
[2017-05-15] MEDS: BUDESONIDE 0.5 MG/2 ML NEBU. NEB SCH ×2 (08:07→19:56)
[2017-05-15] MEDS: BENZONATATE 100 MG CAPSULE. PO PRN (08:43)
--- NOTE | 2017-05-15 10:11 | PDOC2 ---
CONSULT Date of Consult Date of Consult DATE: 05/15/17 TIME: 10:07 Reason for Consult Reason for Consult: DYSPNEA Referring Physician Referring Physician: DR ALLEN Identification/Chief Complaint Chief Complaint SOA Problems: History of Present Illness Reason for Visit: Ms. Nguyen, is a 31 year old female admit from ER for acute dyspnea. She has been to the ER mult times, was last there april 13, given prednisone taper, albuterol inhaler, she reports the inhaler "has run out' She has not established care with a PCP and does cont. to smoke. She works at [employer], not in a smoking area, but where things are steam cleaned, and this normally does not bother her. She has mild cough, no fever or chills. No CP Not on any steroid inhaler Past Medical History Pulmonary: Other GI: No pertinent hx Heme/Onc: No pertinent hx Hepatobiliary: No pertinent hx Psych: Addictions (cig) Rheumatologic: No pertinent hx Infectious disease: No pertinent hx ENT: No pertinent hx Endocrine: No pertinent hx Family History Family History: Asthma (reports 4 persons in the room with her had asthma) Social History <1 pack per day ALCOHOL: none Drugs: None Current Problem List Problem List Problems Medical Problems: (1) Asthma exacerbation Status: Acute (2) Shortness of breath Status: Acute (3) Smoking addiction Status: Acute Current Medications Current Medications Current Medications Dexamethasone Sodium Phosphate (Decadron) 10 mg 1X ONCE IV Last administered on 05/14/17 15:02; Start 05/14/17 at 14:45; Stop 05/14/17 at 14:46; Status DC Albuterol/ Ipratropium (Duoneb) 3 ml 1X ONCE NEB Last administered on 14:47; Start 05/14/17 at 14:45; Stop 05/14/17 at 14:46; Status DC Albuterol Sulfate (Ventolin Neb Soln) 10 mg 1X ONCE CONT NEB Last administered on 05/14/17 14:47; Start 05/14/17 at 14:45; Stop 05/14/17 at 14:46 ; Status DC Ondansetron HCl (Zofran) 4 mg PRN Q8HRS PRN IV NAUSEA/VOMITING; Start 05/14/17 at 16:45; Stop 05/15/17 at 16:44 Acetaminophen (Tylenol) 650 mg PRN Q4HRS PRN PO FEVER; Start 05/14/17 at 16:45 ; Stop 05/15/17 at 16:44 Albuterol/ Ipratropium (Duoneb) 3 ml RTQID NEB Last administered on 05/14/17 19:32; Start 05/14/17 at 20:00; Stop 05/14/17 at 21:01; Status DC Methylprednisolone Sodium Succinate (SOLU-Medrol 125MG VIAL) 80 mg Q8HRS IV Last administered on 05/15/17 06:20; Start 05/14/17 at 22:00 Ibuprofen (Motrin) 800 mg PRN Q8HRS PRN PO pain Last administered on 05/15/17 08:49; Start 05/14/17 at 16:45 Benzonatate (Tessalon Perle) 100 mg PRN TID PRN PO cough Last administered on 08:43; Start 05/14/17 at 16:45 Albuterol/ Ipratropium (Duoneb) 3 ml Q4HRS W/A NEB Last administered on 08:06; Start 05/14/17 at 22:00; Stop 05/15/17 at 21:59 Budesonide (Pulmicort) 0.5 mg RTBID NEB Last administered on 05/15/17 08:07; Start 05/15/17 at 08:00 Budesonide (Pulmicort) 0.5 mg 1X ONCE NEB ; Start 05/14/17 at 21:00; Stop 05/14 at 21:04; Status DC Albuterol Sulfate (Ventolin Neb Soln) 2.5 mg PRN Q4HRS PRN NEB SHORTNESS OF BREATH; Start 05/14/17 at 22:00 Active Scripts Active Doxycycline Hyclate 100 Mg Capsule 1 Cap PO BID Proair Hfa Inhaler (Albuterol Sulfate) 8.5 Gm Hfa.aer.ad 2 Puff INH Q4-6HRS PRN Prednisone 10 Mg Tablet 10 Mg PO UD Take 3 tablets by mouth twice a day for 3 days, then take 2 tablets by mouth twice a day for 3 days, then take 1 tablet by mouth twice a day for 3 days, then take 1 tablet by mouth daily x 3 days, then stop. Allergies Allergies: Coded Allergies: No Known Drug Allergies (Unverified , 03/27/17) Physical Exam General: Alert, Oriented X3 Lungs: Other (bilateral wheezing) Heart: No murmurs Abdomen: Normal bowel sounds Extremities: No clubbing, No cyanosis Skin: No rashes Neuro: Normal gait MUSCULOSKELETAL: No joint tenderness Vitals VITALS Vital Signs Date Time Temp Pulse Resp B/P (MAP) Pulse Ox O2 Delivery O2 Flow Rate FiO2 05/15/17 08:29 Nasal Cannula 4.0 05/15/17 08:09 94 05/15/17 07:00 98.1 69 18 121/74 (90) 98.1 Labs Labs Laboratory Tests Test 05/14/17 14:44 05/14/17 18:07 05/15/17 04:30 White Blood Count 9.0 x10^3/uL (4.0-11.0) 8.7 x10^3/uL (4.0-11.0) Red Blood Count 4.80 x10^6/uL (3.50-5.40) 4.96 x10^6/uL (3.50-5.40) Hemoglobin 14.6 g/dL (12.0-15.5) 15.1 g/dL (12.0-15.5) Hematocrit 43.0 % (36.0-47.0) 44.4 % (36.0-47.0) Mean Corpuscular Volume 90 fL (79-100) 90 fL (79-100) Mean Corpuscular Hemoglobin 30 pg (25-35) 30 pg (25-35) Mean Corpuscular Hemoglobin Concent 34 g/dL (31-37) 34 g/dL (31-37) Red Cell Distribution Width 13.6 % (11.5-14.5) 13.5 % (11.5-14.5) Platelet Count 288 x10^3/uL (140-400) 306 x10^3/uL (140-400) Neutrophils (%) (Auto) 61 % (31-73) 90 % (31-73) Lymphocytes (%) (Auto) 25 % (24-48) 9 % (24-48) Monocytes (%) (Auto) 8 % (0-9) 1 % (0-9) Eosinophils (%) (Auto) 6 % (0-3) 0 % (0-3) Basophils (%) (Auto) 1 % (0-3) 0 % (0-3) Neutrophils # (Auto) 5.5 x10^3uL (1.8-7.7) 7.8 x10^3uL (1.8-7.7) Lymphocytes # (Auto) 2.3 x10^3/uL (1.0-4.8) 0.8 x10^3/uL (1.0-4.8) Monocytes # (Auto) 0.7 x10^3/uL (0.0-1.1) 0.1 x10^3/uL (0.0-1.1) Eosinophils # (Auto) 0.5 x10^3/uL (0.0-0.7) 0.0 x10^3/uL (0.0-0.7) Basophils # (Auto) 0.1 x10^3/uL (0.0-0.2) 0.0 x10^3/uL (0.0-0.2) Sodium Level 142 mmol/L (136-145) 140 mmol/L (136-145) Potassium Level 3.8 mmol/L (3.5-5.1) 4.4 mmol/L (3.5-5.1) Chloride Level 107 mmol/L (98-107) 106 mmol/L (98-107) Carbon Dioxide Level 25 mmol/L (21-32) 23 mmol/L (21-32) Anion Gap 10 (6-14) 11 (6-14) Blood Urea Nitrogen 7 mg/dL (7-20) 7 mg/dL (7-20) Creatinine 0.9 mg/dL (0.6-1.0) 0.9 mg/dL (0.6-1.0) Estimated GFR (Cockcroft-Gault) 74.0 74.0 Glucose Level 97 mg/dL (70-99) 125 mg/dL (70-99) Calcium Level 8.9 mg/dL (8.5-10.1) 9.6 mg/dL (8.5-10.1) Creatine Kinase 213 U/L (26-192) Creatine Kinase MB (Mass) 2.1 ng/mL (0.0-3.6) Creatine Kinase MB Relative Index 1.0 % (0-4) Troponin I Quantitative < 0.017 ng/mL (0.000-0.055) Ethyl Alcohol Level < 10 mg/dL (0-10) Urine Opiates Screen Neg (NEG) Urine Methadone Screen Neg (NEG) Urine Barbiturates Neg (NEG) Urine Phencyclidine Screen Neg (NEG) Urine Amphetamine/Methamphetamine Neg (NEG) Urine Benzodiazepines Screen Neg (NEG) Urine Cocaine Screen Neg (NEG) Urine Cannabinoids Screen Neg (NEG) Urine Ethyl Alcohol Neg (NEG) Segmented Neutrophils % 79 % (35-66) Band Neutrophils % 9 % (0-9) Lymphocytes % 11 % (24-48) Monocytes % 1 % (0-10) Platelet Estimate Adequate (ADEQUATE) Laboratory Tests Test 05/14/17 14:44 05/14/17 18:07 05/15/17 04:30 White Blood Count 9.0 x10^3/uL (4.0-11.0) 8.7 x10^3/uL (4.0-11.0) Red Blood Count 4.80 x10^6/uL (3.50-5.40) 4.96 x10^6/uL (3.50-5.40) Hemoglobin 14.6 g/dL (12.0-15.5) 15.1 g/dL (12.0-15.5) Hematocrit 43.0 % (36.0-47.0) 44.4 % (36.0-47.0) Mean Corpuscular Volume 90 fL (79-100) 90 fL (79-100) Mean Corpuscular Hemoglobin 30 pg (25-35) 30 pg (25-35) Mean Corpuscular Hemoglobin Concent 34 g/dL (31-37) 34 g/dL (31-37) Red Cell Distribution Width 13.6 % (11.5-14.5) 13.5 % (11.5-14.5) Platelet Count 288 x10^3/uL (140-400) 306 x10^3/uL (140-400) Neutrophils (%) (Auto) 61 % (31-73) 90 % (31-73) Lymphocytes (%) (Auto) 25 % (24-48) 9 % (24-48) Monocytes (%) (Auto) 8 % (0-9) 1 % (0-9) Eosinophils (%) (Auto) 6 % (0-3) 0 % (0-3) Basophils (%) (Auto) 1 % (0-3) 0 % (0-3) Neutrophils # (Auto) 5.5 x10^3uL (1.8-7.7) 7.8 x10^3uL (1.8-7.7) Lymphocytes # (Auto) 2.3 x10^3/uL (1.0-4.8) 0.8 x10^3/uL (1.0-4.8) Monocytes # (Auto) 0.7 x10^3/uL (0.0-1.1) 0.1 x10^3/uL (0.0-1.1) Eosinophils # (Auto) 0.5 x10^3/uL (0.0-0.7) 0.0 x10^3/uL (0.0-0.7) Basophils # (Auto) 0.1 x10^3/uL (0.0-0.2) 0.0 x10^3/uL (0.0-0.2) Sodium Level 142 mmol/L (136-145) 140 mmol/L (136-145) Potassium Level 3.8 mmol/L (3.5-5.1) 4.4 mmol/L (3.5-5.1) Chloride Level 107 mmol/L (98-107) 106 mmol/L (98-107) Carbon Dioxide Level 25 mmol/L (21-32) 23 mmol/L (21-32) Anion Gap 10 (6-14) 11 (6-14) Blood Urea Nitrogen 7 mg/dL (7-20) 7 mg/dL (7-20) Creatinine 0.9 mg/dL (0.6-1.0) 0.9 mg/dL (0.6-1.0) Estimated GFR (Cockcroft-Gault) 74.0 74.0 Glucose Level 97 mg/dL (70-99) 125 mg/dL (70-99) Calcium Level 8.9 mg/dL (8.5-10.1) 9.6 mg/dL (8.5-10.1) Creatine Kinase 213 U/L (26-192) Creatine Kinase MB (Mass) 2.1 ng/mL (0.0-3.6) Creatine Kinase MB Relative Index 1.0 % (0-4) Troponin I Quantitative < 0.017 ng/mL (0.000-0.055) Ethyl Alcohol Level < 10 mg/dL (0-10) Urine Opiates Screen Neg (NEG) Urine Methadone Screen Neg (NEG) Urine Barbiturates Neg (NEG) Urine Phencyclidine Screen Neg (NEG) Urine Amphetamine/Methamphetamine Neg (NEG) Urine Benzodiazepines Screen Neg (NEG) Urine Cocaine Screen Neg (NEG) Urine Cannabinoids Screen Neg (NEG) Urine Ethyl Alcohol Neg (NEG) Segmented Neutrophils % 79 % (35-66) Band Neutrophils % 9 % (0-9) Lymphocytes % 11 % (24-48) Monocytes % 1 % (0-10) Platelet Estimate Adequate (ADEQUATE) Assessment/Plan Assessment/Plan 1. Adult onset, newly diagnosed asthma with exacerbation 2. No Pneumonia 3. Tobacco use PLAN 1. Smoking cessation 2. Nebs 3. Steroid taper 4. Need to be on steroid maintenance inhaler. I gave her flovent prescription 5. She wants to go home. If wheezing gets better later today, [facility] MARIEL STANFORD MD May 15, 2017 10:11
[2017-05-15 11:00] VITALS: BP 118/68
[2017-05-15] MEDS ORDERED: ACETAMINOPHEN 325 MG TABLET. PO PRN (11:00)
[2017-05-15] MEDS ORDERED: ONDANSETRON PF 4 MG/2 ML VIAL. IV PRN (11:00)
[2017-05-15] MEDS ORDERED: DOCUSATE SODIUM 100 MG CAPSULE. PO PRN (11:00)
[2017-05-15] MEDS ORDERED: ALBUTEROL SULFATE 2.5 MG/3 ML NEBU. NEB PRN (11:00)
[2017-05-15] MEDS ORDERED: traMADol 50 MG TABLET PO PRN (11:00)
[2017-05-15] MEDS ORDERED: MORPHINE SULFATE 2 MG/ML DISP.SYRIN. IV PRN (11:00)
[2017-05-15] MEDS ORDERED: hydrALAZINE 20 MG/ML VIAL. IVP PRN (11:00)
--- NOTE | 2017-05-15 12:59 | PDOC ---
PROGRESS NOTES Chief Complaint Chief Complaint Asthma, acute exacerbation acute hypoxic resp failure tobaccoism plan: failed 6 min walk taper steroid duoneb qid albuterol prn cough meds fu pulm dvt, gi ppx hope dc in 1-2ds home wo o2 History of Present Illness History of Present Illness still need NC 3-4L ,DROP sat immediately when walk mild cough Vitals Vitals Vital Signs Date Time Temp Pulse Resp B/P (MAP) Pulse Ox O2 Delivery O2 Flow Rate FiO2 05/15/17 11:46 Nasal Cannula 4.0 05/15/17 11:00 98.2 84 18 118/68 (85) 93 98.2 Physical Exam General: Alert, Oriented X3 Heart: Regular rate, Normal S1, Normal S2, No murmurs Lungs: Wheezing (bl mild) Abdomen: Normal bowel sounds Extremities: No clubbing, No cyanosis Skin: No rashes Labs LABS Laboratory Tests Test 05/14/17 14:44 05/14/17 18:07 05/15/17 04:30 White Blood Count 9.0 x10^3/uL (4.0-11.0) 8.7 x10^3/uL (4.0-11.0) Red Blood Count 4.80 x10^6/uL (3.50-5.40) 4.96 x10^6/uL (3.50-5.40) Hemoglobin 14.6 g/dL (12.0-15.5) 15.1 g/dL (12.0-15.5) Hematocrit 43.0 % (36.0-47.0) 44.4 % (36.0-47.0) Mean Corpuscular Volume 90 fL (79-100) 90 fL (79-100) Mean Corpuscular Hemoglobin 30 pg (25-35) 30 pg (25-35) Mean Corpuscular Hemoglobin Concent 34 g/dL (31-37) 34 g/dL (31-37) Red Cell Distribution Width 13.6 % (11.5-14.5) 13.5 % (11.5-14.5) Platelet Count 288 x10^3/uL (140-400) 306 x10^3/uL (140-400) Neutrophils (%) (Auto) 61 % (31-73) 90 % (31-73) Lymphocytes (%) (Auto) 25 % (24-48) 9 % (24-48) Monocytes (%) (Auto) 8 % (0-9) 1 % (0-9) Eosinophils (%) (Auto) 6 % (0-3) 0 % (0-3) Basophils (%) (Auto) 1 % (0-3) 0 % (0-3) Neutrophils # (Auto) 5.5 x10^3uL (1.8-7.7) 7.8 x10^3uL (1.8-7.7) Lymphocytes # (Auto) 2.3 x10^3/uL (1.0-4.8) 0.8 x10^3/uL (1.0-4.8) Monocytes # (Auto) 0.7 x10^3/uL (0.0-1.1) 0.1 x10^3/uL (0.0-1.1) Eosinophils # (Auto) 0.5 x10^3/uL (0.0-0.7) 0.0 x10^3/uL (0.0-0.7) Basophils # (Auto) 0.1 x10^3/uL (0.0-0.2) 0.0 x10^3/uL (0.0-0.2) Sodium Level 142 mmol/L (136-145) 140 mmol/L (136-145) Potassium Level 3.8 mmol/L (3.5-5.1) 4.4 mmol/L (3.5-5.1) Chloride Level 107 mmol/L (98-107) 106 mmol/L (98-107) Carbon Dioxide Level 25 mmol/L (21-32) 23 mmol/L (21-32) Anion Gap 10 (6-14) 11 (6-14) Blood Urea Nitrogen 7 mg/dL (7-20) 7 mg/dL (7-20) Creatinine 0.9 mg/dL (0.6-1.0) 0.9 mg/dL (0.6-1.0) Estimated GFR (Cockcroft-Gault) 74.0 74.0 Glucose Level 97 mg/dL (70-99) 125 mg/dL (70-99) Calcium Level 8.9 mg/dL (8.5-10.1) 9.6 mg/dL (8.5-10.1) Creatine Kinase 213 U/L (26-192) Creatine Kinase MB (Mass) 2.1 ng/mL (0.0-3.6) Creatine Kinase MB Relative Index 1.0 % (0-4) Troponin I Quantitative < 0.017 ng/mL (0.000-0.055) Ethyl Alcohol Level < 10 mg/dL (0-10) Urine Opiates Screen Neg (NEG) Urine Methadone Screen Neg (NEG) Urine Barbiturates Neg (NEG) Urine Phencyclidine Screen Neg (NEG) Urine Amphetamine/Methamphetamine Neg (NEG) Urine Benzodiazepines Screen Neg (NEG) Urine Cocaine Screen Neg (NEG) Urine Cannabinoids Screen Neg (NEG) Urine Ethyl Alcohol Neg (NEG) Segmented Neutrophils % 79 % (35-66) Band Neutrophils % 9 % (0-9) Lymphocytes % 11 % (24-48) Monocytes % 1 % (0-10) Platelet Estimate Adequate (ADEQUATE) Review of Systems Review of Systems no fever, chills, or chest pain Assessment and Plan Assessmemt and Plan Problems Medical Problems: (1) Asthma exacerbation Status: Acute (2) Shortness of breath Status: Acute (3) Smoking addiction Status: Acute Problems: Comment Review of Relevant I have reviewed the following items deidre (where applicable) has been applied. Labs Laboratory Tests Test 05/14/17 14:44 05/14/17 18:07 05/15/17 04:30 White Blood Count 9.0 x10^3/uL (4.0-11.0) 8.7 x10^3/uL (4.0-11.0) Red Blood Count 4.80 x10^6/uL (3.50-5.40) 4.96 x10^6/uL (3.50-5.40) Hemoglobin 14.6 g/dL (12.0-15.5) 15.1 g/dL (12.0-15.5) Hematocrit 43.0 % (36.0-47.0) 44.4 % (36.0-47.0) Mean Corpuscular Volume 90 fL (79-100) 90 fL (79-100) Mean Corpuscular Hemoglobin 30 pg (25-35) 30 pg (25-35) Mean Corpuscular Hemoglobin Concent 34 g/dL (31-37) 34 g/dL (31-37) Red Cell Distribution Width 13.6 % (11.5-14.5) 13.5 % (11.5-14.5) Platelet Count 288 x10^3/uL (140-400) 306 x10^3/uL (140-400) Neutrophils (%) (Auto) 61 % (31-73) 90 % (31-73) Lymphocytes (%) (Auto) 25 % (24-48) 9 % (24-48) Monocytes (%) (Auto) 8 % (0-9) 1 % (0-9) Eosinophils (%) (Auto) 6 % (0-3) 0 % (0-3) Basophils (%) (Auto) 1 % (0-3) 0 % (0-3) Neutrophils # (Auto) 5.5 x10^3uL (1.8-7.7) 7.8 x10^3uL (1.8-7.7) Lymphocytes # (Auto) 2.3 x10^3/uL (1.0-4.8) 0.8 x10^3/uL (1.0-4.8) Monocytes # (Auto) 0.7 x10^3/uL (0.0-1.1) 0.1 x10^3/uL (0.0-1.1) Eosinophils # (Auto) 0.5 x10^3/uL (0.0-0.7) 0.0 x10^3/uL (0.0-0.7) Basophils # (Auto) 0.1 x10^3/uL (0.0-0.2) 0.0 x10^3/uL (0.0-0.2) Sodium Level 142 mmol/L (136-145) 140 mmol/L (136-145) Potassium Level 3.8 mmol/L (3.5-5.1) 4.4 mmol/L (3.5-5.1) Chloride Level 107 mmol/L (98-107) 106 mmol/L (98-107) Carbon Dioxide Level 25 mmol/L (21-32) 23 mmol/L (21-32) Anion Gap 10 (6-14) 11 (6-14) Blood Urea Nitrogen 7 mg/dL (7-20) 7 mg/dL (7-20) Creatinine 0.9 mg/dL (0.6-1.0) 0.9 mg/dL (0.6-1.0) Estimated GFR (Cockcroft-Gault) 74.0 74.0 Glucose Level 97 mg/dL (70-99) 125 mg/dL (70-99) Calcium Level 8.9 mg/dL (8.5-10.1) 9.6 mg/dL (8.5-10.1) Creatine Kinase 213 U/L (26-192) Creatine Kinase MB (Mass) 2.1 ng/mL (0.0-3.6) Creatine Kinase MB Relative Index 1.0 % (0-4) Troponin I Quantitative < 0.017 ng/mL (0.000-0.055) Ethyl Alcohol Level < 10 mg/dL (0-10) Urine Opiates Screen Neg (NEG) Urine Methadone Screen Neg (NEG) Urine Barbiturates Neg (NEG) Urine Phencyclidine Screen Neg (NEG) Urine Amphetamine/Methamphetamine Neg (NEG) Urine Benzodiazepines Screen Neg (NEG) Urine Cocaine Screen Neg (NEG) Urine Cannabinoids Screen Neg (NEG) Urine Ethyl Alcohol Neg (NEG) Segmented Neutrophils % 79 % (35-66) Band Neutrophils % 9 % (0-9) Lymphocytes % 11 % (24-48) Monocytes % 1 % (0-10) Platelet Estimate Adequate (ADEQUATE) Laboratory Tests Test 05/14/17 14:44 05/14/17 18:07 05/15/17 04:30 White Blood Count 9.0 x10^3/uL (4.0-11.0) 8.7 x10^3/uL (4.0-11.0) Red Blood Count 4.80 x10^6/uL (3.50-5.40) 4.96 x10^6/uL (3.50-5.40) Hemoglobin 14.6 g/dL (12.0-15.5) 15.1 g/dL (12.0-15.5) Hematocrit 43.0 % (36.0-47.0) 44.4 % (36.0-47.0) Mean Corpuscular Volume 90 fL (79-100) 90 fL (79-100) Mean Corpuscular Hemoglobin 30 pg (25-35) 30 pg (25-35) Mean Corpuscular Hemoglobin Concent 34 g/dL (31-37) 34 g/dL (31-37) Red Cell Distribution Width 13.6 % (11.5-14.5) 13.5 % (11.5-14.5) Platelet Count 288 x10^3/uL (140-400) 306 x10^3/uL (140-400) Neutrophils (%) (Auto) 61 % (31-73) 90 % (31-73) Lymphocytes (%) (Auto) 25 % (24-48) 9 % (24-48) Monocytes (%) (Auto) 8 % (0-9) 1 % (0-9) Eosinophils (%) (Auto) 6 % (0-3) 0 % (0-3) Basophils (%) (Auto) 1 % (0-3) 0 % (0-3) Neutrophils # (Auto) 5.5 x10^3uL (1.8-7.7) 7.8 x10^3uL (1.8-7.7) Lymphocytes # (Auto) 2.3 x10^3/uL (1.0-4.8) 0.8 x10^3/uL (1.0-4.8) Monocytes # (Auto) 0.7 x10^3/uL (0.0-1.1) 0.1 x10^3/uL (0.0-1.1) Eosinophils # (Auto) 0.5 x10^3/uL (0.0-0.7) 0.0 x10^3/uL (0.0-0.7) Basophils # (Auto) 0.1 x10^3/uL (0.0-0.2) 0.0 x10^3/uL (0.0-0.2) Sodium Level 142 mmol/L (136-145) 140 mmol/L (136-145) Potassium Level 3.8 mmol/L (3.5-5.1) 4.4 mmol/L (3.5-5.1) Chloride Level 107 mmol/L (98-107) 106 mmol/L (98-107) Carbon Dioxide Level 25 mmol/L (21-32) 23 mmol/L (21-32) Anion Gap 10 (6-14) 11 (6-14) Blood Urea Nitrogen 7 mg/dL (7-20) 7 mg/dL (7-20) Creatinine 0.9 mg/dL (0.6-1.0) 0.9 mg/dL (0.6-1.0) Estimated GFR (Cockcroft-Gault) 74.0 74.0 Glucose Level 97 mg/dL (70-99) 125 mg/dL (70-99) Calcium Level 8.9 mg/dL (8.5-10.1) 9.6 mg/dL (8.5-10.1) Creatine Kinase 213 U/L (26-192) Creatine Kinase MB (Mass) 2.1 ng/mL (0.0-3.6) Creatine Kinase MB Relative Index 1.0 % (0-4) Troponin I Quantitative < 0.017 ng/mL (0.000-0.055) Ethyl Alcohol Level < 10 mg/dL (0-10) Urine Opiates Screen Neg (NEG) Urine Methadone Screen Neg (NEG) Urine Barbiturates Neg (NEG) Urine Phencyclidine Screen Neg (NEG) Urine Amphetamine/Methamphetamine Neg (NEG) Urine Benzodiazepines Screen Neg (NEG) Urine Cocaine Screen Neg (NEG) Urine Cannabinoids Screen Neg (NEG) Urine Ethyl Alcohol Neg (NEG) Segmented Neutrophils % 79 % (35-66) Band Neutrophils % 9 % (0-9) Lymphocytes % 11 % (24-48) Monocytes % 1 % (0-10) Platelet Estimate Adequate (ADEQUATE) Medications Current Medications Dexamethasone Sodium Phosphate (Decadron) 10 mg 1X ONCE IV Last administered on 05/14/17 15:02; Start 05/14/17 at 14:45; Stop 05/14/17 at 14:46; Status DC Albuterol/ Ipratropium (Duoneb) 3 ml 1X ONCE NEB Last administered on 14:47; Start 05/14/17 at 14:45; Stop 05/14/17 at 14:46; Status DC Albuterol Sulfate (Ventolin Neb Soln) 10 mg 1X ONCE CONT NEB Last administered on 05/14/17 14:47; Start 05/14/17 at 14:45; Stop 05/14/17 at 14:46 ; Status DC Ondansetron HCl (Zofran) 4 mg PRN Q8HRS PRN IV NAUSEA/VOMITING; Start 05/14/17 at 16:45; Stop 05/15/17 at 16:44 Acetaminophen (Tylenol) 650 mg PRN Q4HRS PRN PO FEVER; Start 05/14/17 at 16:45 ; Stop 05/15/17 at 16:44 Albuterol/ Ipratropium (Duoneb) 3 ml RTQID NEB Last administered on 05/14/17 19:32; Start 05/14/17 at 20:00; Stop 05/14/17 at 21:01; Status DC Methylprednisolone Sodium Succinate (SOLU-Medrol 125MG VIAL) 80 mg Q8HRS IV Last administered on 05/15/17 06:20; Start 05/14/17 at 22:00; Stop 05/15/17 at 10:58; Status DC Ibuprofen (Motrin) 800 mg PRN Q8HRS PRN PO pain Last administered on 05/15/17 08:49; Start 05/14/17 at 16:45 Benzonatate (Tessalon Perle) 100 mg PRN TID PRN PO cough Last administered on 08:43; Start 05/14/17 at 16:45 Albuterol/ Ipratropium (Duoneb) 3 ml Q4HRS W/A NEB Last administered on 11:44; Start 05/14/17 at 22:00; Stop 05/15/17 at 21:59 Budesonide (Pulmicort) 0.5 mg RTBID NEB Last administered on 05/15/17 08:07; Start 05/15/17 at 08:00 Budesonide (Pulmicort) 0.5 mg 1X ONCE NEB ; Start 05/14/17 at 21:00; Stop 05/14 at 21:04; Status DC Albuterol Sulfate (Ventolin Neb Soln) 2.5 mg PRN Q4HRS PRN NEB SHORTNESS OF BREATH; Start 05/14/17 at 22:00; Stop 05/15/17 at 10:58; Status DC Methylprednisolone Sodium Succinate (SOLU-Medrol 125MG VIAL) 60 mg Q8HRS IV ; Start 05/15/17 at 14:00 Acetaminophen (Tylenol) 650 mg PRN Q6HRS PRN PO FEVER; Start 05/15/17 at 11:00 Ondansetron HCl (Zofran) 4 mg PRN Q6HRS PRN IV NAUSEA/VOMITING; Start 05/15/17 at 11:00 Morphine Sulfate 2 mg PRN Q2HR PRN IV PAIN; Start 05/15/17 at 11:00 Tramadol HCl (Ultram) 50 mg PRN Q6HRS PRN PO PAIN; Start 05/15/17 at 11:00 Hydralazine HCl (Apresoline) 10 mg PRN Q4HRS PRN IVP ELEVATED BP, SEE COMMENTS ; Start 05/15/17 at 11:00 Docusate Sodium (Colace) 100 mg PRN DAILY PRN PO CONSTIPATION; Start 05/15/17 at 11:00 Albuterol/ Ipratropium (Duoneb) 3 ml RTQID NEB ; Start 05/15/17 at 12:00 Albuterol Sulfate (Ventolin Neb Soln) 2.5 mg PRN Q2HR PRN NEB SHORTNESS OF BREATH; Start 05/15/17 at 11:00 Guaifenesin (Mucinex) 600 mg BID PO Last administered on 05/15/17t 11:39; Start 05/15/17 at 11:30 Famotidine (Pepcid) 20 mg QHS PO ; Start 05/15/17 at 21:00 Active Scripts Active Doxycycline Hyclate 100 Mg Capsule 1 Cap PO BID Proair Hfa Inhaler (Albuterol Sulfate) 8.5 Gm Hfa.aer.ad 2 Puff INH Q4-6HRS PRN Prednisone 10 Mg Tablet 10 Mg PO UD Take 3 tablets by mouth twice a day for 3 days, then take 2 tablets by mouth twice a day for 3 days, then take 1 tablet by mouth twice a day for 3 days, then take 1 tablet by mouth daily x 3 days, then stop. Vitals/I & O Vital Sign - Last 24 Hours 05/14/17 05/14/17 05/14/17 05/14/17 14:21 14:48 14:50 15:09 Temp 98.4 98.4 Pulse 78 83 Resp 20 29 B/P (MAP) 140/94 (109) 120/80 (93) Pulse Ox 95 89 89 96 O2 Delivery Room Air Room Air 05/14/17 05/14/17 05/14/17 05/14/17 17:05 17:54 18:45 19:36 Temp 98.2 98.2 Pulse 82 84 73 Resp 24 31 20 B/P (MAP) 124/86 (99) 119/77 (91) 111/80 (90) Pulse Ox 88 91 90 94 O2 Delivery Aerosol Mask Room Air Nasal Cannula O2 Flow Rate 4.0 05/14/17 05/14/17 05/15/17 05/15/17 20:00 23:40 03:00 07:00 Temp 97.6 98.0 98.1 97.6 98.0 98.1 Pulse 83 80 69 Resp 18 18 18 B/P (MAP) 129/73 (91) 123/76 (92) 121/74 (90) Pulse Ox 94 94 92 O2 Delivery Nasal Cannula Nasal Cannula Nasal Cannula Nasal Cannula O2 Flow Rate 4.0 4.0 4.0 4.0 05/15/17 05/15/17 05/15/17 05/15/17 08:09 08:29 11:00 11:46 Temp 98.2 98.2 Pulse 84 Resp 18 B/P (MAP) 118/68 (85) Pulse Ox 94 93 O2 Delivery Nasal Cannula Nasal Cannula Nasal Cannula Nasal Cannula O2 Flow Rate 4.0 4.0 3.0 4.0 Intake and Output 05/14/17 05/14/17 05/15/17 15:00 23:00 07:00 Intake Total 200 ml Balance 200 ml MANI FITCH MD May 15, 2017 12:59
[2017-05-15 14:44] VITALS: BP 115/61
[2017-05-15 19:00] VITALS: BP 126/69
[2017-05-15] MEDS ORDERED: FAMOTIDINE 20 MG TABLET. PO SCH (21:00)
[2017-05-15 23:00] VITALS: BP 107/71
[2017-05-16 03:00] VITALS: BP 118/56
[2017-05-16 05:13] LABS: BASO % 0 % (0-3); EOS % 0 % (0-3); HEMATOCRIT 41.3 % (36.0-47.0); HEMOGLOBIN 13.8 g/dL (12.0-15.5); LYMPH # 1.2 x10^3/uL (1.0-4.8); LYMPH % 5 % (24-48); MEAN CORPUSCULAR HEMOGLOBIN 30 pg (25-35); MEAN CORPUSCULAR HGB CONC 33 g/dL (31-37); MEAN CORPUSCULAR VOLUME 90 fL (79-100); MONO % 4 % (0-9); NEUT % 91 % (31-73); PLATELET COUNT 307 x10^3/uL (140-400); RED BLOOD COUNT 4.59 x10^6/uL (3.50-5.40); RED CELL DISTRIBUTION WIDTH 13.7 % (11.5-14.5)
[2017-05-16 05:32] LABS: CALCIUM 8.9 mg/dL (8.5-10.1); CREATININE 0.9 mg/dL (0.6-1.0); POTASSIUM 4.1 mmol/L (3.5-5.1)
[2017-05-16] MEDS: methylPREDNISolone SOD SUCC PF 125 MG/2 ML VIAL. IV SCH (06:09)
[2017-05-16 07:00] VITALS: BP 129/69
[2017-05-16 07:17] LABS: PLT ESTIMATE ADEQUATE (ADEQUATE)
[2017-05-16] MEDS: BUDESONIDE 0.5 MG/2 ML NEBU. NEB SCH (07:19)
[2017-05-16] MEDS: IPRATRPIUM/ALBUTEROL 0.5/2.5MG 3 ML NEBU. NEB SCH ×2 (07:19→11:36)
--- NOTE | 2017-05-16 08:16 | PDOC ---
PULMONARY PROGRESS NOTES Subjective feels better Vitals Vital Signs Date Time Temp Pulse Resp B/P (MAP) Pulse Ox O2 Delivery O2 Flow Rate FiO2 05/16/17 07:19 95 Nasal Cannula 3.0 05/16/17 03:00 98.9 80 20 118/56 (76) 98.9 General: Alert, No acute distress Lungs: Wheezing (faint) Cardiovascular: S1 Abdomen: Soft Neuro Exam: Alert Extremities: No Edema Skin: Warm Labs Laboratory Tests Test 05/14/17 14:44 05/14/17 18:07 05/15/17 04:30 05/16/17 04:43 White Blood Count 9.0 x10^3/uL (4.0-11.0) 8.7 x10^3/uL (4.0-11.0) 23.0 x10^3/uL (4.0-11.0) Red Blood Count 4.80 x10^6/uL (3.50-5.40) 4.96 x10^6/uL (3.50-5.40) 4.59 x10^6/uL (3.50-5.40) Hemoglobin 14.6 g/dL (12.0-15.5) 15.1 g/dL (12.0-15.5) 13.8 g/dL (12.0-15.5) Hematocrit 43.0 % (36.0-47.0) 44.4 % (36.0-47.0) 41.3 % (36.0-47.0) Mean Corpuscular Volume 90 fL (79-100) 90 fL (79-100) 90 fL (79-100) Mean Corpuscular Hemoglobin 30 pg (25-35) 30 pg (25-35) 30 pg (25-35) Mean Corpuscular Hemoglobin Concent 34 g/dL (31-37) 34 g/dL (31-37) 33 g/dL (31-37) Red Cell Distribution Width 13.6 % (11.5-14.5) 13.5 % (11.5-14.5) 13.7 % (11.5-14.5) Platelet Count 288 x10^3/uL (140-400) 306 x10^3/uL (140-400) 307 x10^3/uL (140-400) Neutrophils (%) (Auto) 61 % (31-73) 90 % (31-73) 91 % (31-73) Lymphocytes (%) (Auto) 25 % (24-48) 9 % (24-48) 5 % (24-48) Monocytes (%) (Auto) 8 % (0-9) 1 % (0-9) 4 % (0-9) Eosinophils (%) (Auto) 6 % (0-3) 0 % (0-3) 0 % (0-3) Basophils (%) (Auto) 1 % (0-3) 0 % (0-3) 0 % (0-3) Neutrophils # (Auto) 5.5 x10^3uL (1.8-7.7) 7.8 x10^3uL (1.8-7.7) 21.0 x10^3uL (1.8-7.7) Lymphocytes # (Auto) 2.3 x10^3/uL (1.0-4.8) 0.8 x10^3/uL (1.0-4.8) 1.2 x10^3/uL (1.0-4.8) Monocytes # (Auto) 0.7 x10^3/uL (0.0-1.1) 0.1 x10^3/uL (0.0-1.1) 0.8 x10^3/uL (0.0-1.1) Eosinophils # (Auto) 0.5 x10^3/uL (0.0-0.7) 0.0 x10^3/uL (0.0-0.7) 0.0 x10^3/uL (0.0-0.7) Basophils # (Auto) 0.1 x10^3/uL (0.0-0.2) 0.0 x10^3/uL (0.0-0.2) 0.0 x10^3/uL (0.0-0.2) Sodium Level 142 mmol/L (136-145) 140 mmol/L (136-145) 141 mmol/L (136-145) Potassium Level 3.8 mmol/L (3.5-5.1) 4.4 mmol/L (3.5-5.1) 4.1 mmol/L (3.5-5.1) Chloride Level 107 mmol/L (98-107) 106 mmol/L (98-107) 107 mmol/L (98-107) Carbon Dioxide Level 25 mmol/L (21-32) 23 mmol/L (21-32) 23 mmol/L (21-32) Anion Gap 10 (6-14) 11 (6-14) 11 (6-14) Blood Urea Nitrogen 7 mg/dL (7-20) 7 mg/dL (7-20) 12 mg/dL (7-20) Creatinine 0.9 mg/dL (0.6-1.0) 0.9 mg/dL (0.6-1.0) 0.9 mg/dL (0.6-1.0) Estimated GFR (Cockcroft-Gault) 74.0 74.0 74.0 Glucose Level 97 mg/dL (70-99) 125 mg/dL (70-99) 139 mg/dL (70-99) Calcium Level 8.9 mg/dL (8.5-10.1) 9.6 mg/dL (8.5-10.1) 8.9 mg/dL (8.5-10.1) Creatine Kinase 213 U/L (26-192) Creatine Kinase MB (Mass) 2.1 ng/mL (0.0-3.6) Creatine Kinase MB Relative Index 1.0 % (0-4) Troponin I Quantitative < 0.017 ng/mL (0.000-0.055) Ethyl Alcohol Level < 10 mg/dL (0-10) Urine Opiates Screen Neg (NEG) Urine Methadone Screen Neg (NEG) Urine Barbiturates Neg (NEG) Urine Phencyclidine Screen Neg (NEG) Urine Amphetamine/Methamphetamine Neg (NEG) Urine Benzodiazepines Screen Neg (NEG) Urine Cocaine Screen Neg (NEG) Urine Cannabinoids Screen Neg (NEG) Urine Ethyl Alcohol Neg (NEG) Segmented Neutrophils % 79 % (35-66) 83 % (35-66) Band Neutrophils % 9 % (0-9) 6 % (0-9) Lymphocytes % 11 % (24-48) 8 % (24-48) Monocytes % 1 % (0-10) 3 % (0-10) Platelet Estimate Adequate (ADEQUATE) Adequate (ADEQUATE) Laboratory Tests Test 05/16/17 04:43 White Blood Count 23.0 x10^3/uL (4.0-11.0) Red Blood Count 4.59 x10^6/uL (3.50-5.40) Hemoglobin 13.8 g/dL (12.0-15.5) Hematocrit 41.3 % (36.0-47.0) Mean Corpuscular Volume 90 fL (79-100) Mean Corpuscular Hemoglobin 30 pg (25-35) Mean Corpuscular Hemoglobin Concent 33 g/dL (31-37) Red Cell Distribution Width 13.7 % (11.5-14.5) Platelet Count 307 x10^3/uL (140-400) Neutrophils (%) (Auto) 91 % (31-73) Lymphocytes (%) (Auto) 5 % (24-48) Monocytes (%) (Auto) 4 % (0-9) Eosinophils (%) (Auto) 0 % (0-3) Basophils (%) (Auto) 0 % (0-3) Neutrophils # (Auto) 21.0 x10^3uL (1.8-7.7) Lymphocytes # (Auto) 1.2 x10^3/uL (1.0-4.8) Monocytes # (Auto) 0.8 x10^3/uL (0.0-1.1) Eosinophils # (Auto) 0.0 x10^3/uL (0.0-0.7) Basophils # (Auto) 0.0 x10^3/uL (0.0-0.2) Segmented Neutrophils % 83 % (35-66) Band Neutrophils % 6 % (0-9) Lymphocytes % 8 % (24-48) Monocytes % 3 % (0-10) Platelet Estimate Adequate (ADEQUATE) Sodium Level 141 mmol/L (136-145) Potassium Level 4.1 mmol/L (3.5-5.1) Chloride Level 107 mmol/L (98-107) Carbon Dioxide Level 23 mmol/L (21-32) Anion Gap 11 (6-14) Blood Urea Nitrogen 12 mg/dL (7-20) Creatinine 0.9 mg/dL (0.6-1.0) Estimated GFR (Cockcroft-Gault) 74.0 Glucose Level 139 mg/dL (70-99) Calcium Level 8.9 mg/dL (8.5-10.1) Medications Active Scripts Medications Dose Route/Sig Max Daily Dose Days Date Category Dose Instructions Doxycycline Hyclate 100 Mg Capsule 1 Cap PO BID 04/13/17 Rx Proair Hfa Inhaler (Albuterol Sulfate) 8.5 Gm Hfa.aer.ad 2 Puff INH Q4-6HRS PRN 04/13/17 Rx Prednisone 10 Mg Tablet 10 Mg PO UD 04/13/17 Rx Take 3 tablets by mouth twice a day for 3 days, then take 2 tablets by mouth twice a day for 3 days, then take 1 tablet by mouth twice a day for 3 days, then take 1 tablet by mouth daily x 3 days, then stop. Impression . 1. Adult onset, newly diagnosed asthma with exacerbation 2. No Pneumonia 3. Tobacco use Plan . 1. Smoking cessation 2. Nebs 3. Steroid taper 4. Need to be on steroid maintenance inhaler. I gave her flovent prescription 5. She wants to go home. ok by me today MARIEL STANFORD MD May 16, 2017 08:16
[2017-05-16 11:00] VITALS: BP 115/74
[2017-05-16] MEDS ORDERED: BENZ100C15 PO (11:54)
[2017-05-16] MEDS ORDERED: PRED20TA PO (11:54)
--- NOTE | 2017-05-16 13:48 | PDOC3 ---
Discharge Summary [facility] Date of Admission: May 14, 2017 Discharge Date: May 16, 2017 Admitting Diagnosis Asthma, acute exacerbation acute hypoxic resp failure tobaccoism Problems: Final Diagnosis CONSULTS pulm Brief Hospital Course Ms. Nguyen is a 31 old F, no h/o asthma or copd, smoker, came for sob. She had severe wheezing at the begining, failed 6min walk on 2nd day. But much better today, no need O2. dc home with a few days of cough meds, prednisone, flovent and ventolin prn given. dc time 35min . General: Alert, Oriented X3 Heart: no wheezing, CTA BL Abdomen: Normal bowel sounds Extremities: No clubbing, No cyanosis Skin: No rashes Problems: Disposition HOME CONDITION AT DISCHARGE: Improved Diet regular Scheduled Prednisone (Prednisone), 40 MG PO DAILY08 Scheduled PRN Albuterol Sulfate (Proair Hfa Inhaler), 2 PUFF INH Q4-6HRS PRN for SHORTNESS OF BREATH Benzonatate (Benzonatate), 100 MG PO PRN TID PRN for cough Discontinued Medications Doxycycline Hyclate (Doxycycline Hyclate), 1 CAP PO BID Prednisone (Prednisone), 10 MG PO UD Follow Up pcp in 2 weeks MANI FITCH MD May 16, 2017 13:48
[2017-05-17] MEDS ORDERED: predniSONE 20 MG TABLET PO SCH (08:00)
== END 2017-05-16 12:20 | disposition home or self-care (01) ==
LOC: ER 14:16 → 6 SOUTH 16:27
PROVIDERS: ADMIT Internal Medicine; ATTEND Internal Medicine
DX: J45.901 Unspecified asthma with (acute) exacerbation (principal); J96.01 Acute respiratory failure with hypoxia; F17.210 Nicotine dependence, cigarettes, uncomplicated
CPT/HCPCS: 36415; 71020; 80048; 82553; 84484; 85007; 85027; 93005; 94250; 94620; 94640; 94644; 94760; 96374; 96375; 96376; 99285; G0378; G0480; G0481; J1100; J2930; J7620; G0379

== ENCOUNTER 2017-10-04 00:47 | Emergency (ER) | payer OTHER ==
[~2017-10-04] VITALS: Ht 170.2 cm; Wt 79.4 kg
[~2017-10-04 00:47] MED LIST changes: +BENZ100C15 PO; +PRED20TA PO
--- NOTE | 2017-10-04 00:55 | PHYS DOC ---
Past Medical History Past Medical History: Pancreatitis Past Surgical History: Additional Past Surgical Histo: X2 Alcohol Use: None Drug Use: None Adult General Chief Complaint Chief Complaint: ALLERGIC REACTION HPI HPI Patient is a 32 year old F who presents with an allergic reaction while at work. Patient states prior to arrival she was at work at the [employer] and started developing allergic reaction. Patient denies any tongue swelling or difficulty swallowing however complains of shortness of breath. Patient has a generalized urticarial rash. Patient denies any fevers. Patient has no other complaints. She does not know what she got into has never had an allergic reaction of this before. Review of Systems Review of Systems GEN: Rash HEENT: Denies blurred vision, sore throat CV: Denies chest pain RESP: Denies shortness of air, cough GI: Denies n/v/d NEURO: Denies confusion, dizziness MSK: Denies weakness, joint pain/swelling All other systems were reviewed and found to be within normal limits, except as documented in this note. Current Medications Current Medications Current Medications Medications (Trade) Dose Ordered Sig/Francesco Start Time Stop Time Status Last Admin Dose Admin Dexamethasone Sodium Phosphate (Decadron) 10 mg 1X ONCE 10/04/17 01:00 10/04/17 01:17 DC 10/04/17 01:03 10 MG Diphenhydramine HCl (Benadryl) 50 mg 1X ONCE 10/04/17 01:15 10/04/17 01:17 DC 10/04/17 01:00 50 MG Epinephrine HCl (Adrenalin) 0.3 mg 1X ONCE 10/04/17 01:00 10/04/17 01:17 DC 10/04/17 01:02 0.3 MG Famotidine (Pepcid Vial) 20 mg 1X ONCE 10/04/17 01:00 10/04/17 01:17 DC 10/04/17 01:02 20 MG Allergies Allergies Allergies Coded Allergies Type Severity Reaction Last Updated Verified Penicillins Allergy Unknown 05/16/17 Yes Physical Exam Physical Exam GEN.: mod distress. Alert and oriented. HEENT: Head is normocephalic, atraumatic NECK: Supple. LUNGS: Slight wheezing bilaterally, tachypnea. HEART: RRR, S1, S2 present. Peripheral pulses intact ABDOMEN: Soft, nontender. Positive bowel sounds. EXTREMITIES: Without any cyanosis. NEUROLOGIC: Normal speech, normal tone PSYCHIATRIC: Normal affect, normal mood. SKIN: Generalized urticarial rash Current Patient Data Vital Signs Vital Signs Date Time Temp Pulse Resp B/P (MAP) Pulse Ox O2 Delivery O2 Flow Rate FiO2 10/04/17 01:08 97.6 77 22 102/54 (70) 85 Room Air 97.6 EKG EKG [] Radiology/Procedures Radiology/Procedures [] Course & Med Decision Making Course & Med Decision Making Pertinent Labs and Imaging studies reviewed. (See chart for details) ED course: Patient was seen and evaluated upon arrival to emergency room 0.3 mg epinephrine IM, 10 mg of Decadron IV, 50 mg of Benadryl IV, 20 mg of Pepcid IV, 1 L normal saline was ordered 0211: On reevaluation the patient is feeling much better and her urticarial rash has resolved and her tachycardia and hypoxia has also resolved, patient's feeling much comfortable with letting go home. Explained to the patient we'll observe for another hour the emergency room. 0245: Patient still asymptomatic in no acute distress ready go home. MDM: After reviewing the chart, CC/HPI/PMH, physical exam, I believe the patient had an acute anaphylactic reaction to unknown substance that was treated with epinephrine and steroids and Benadryl and the patient was observed in emergency room for approximately 2 hours in which she was asymptomatic. 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 Patient was discharged home with steroids and EpiPen's. Patient stable for discharge Additional verbal discharge instructions were provided to the patient and that if symptoms get worse or any new symptoms arise that are worrisome to the patient she is to return to the emergency room immediately [] Dragon Disclaimer Dragon Disclaimer This electronic medical record was generated, in whole or in part, using a voice recognition dictation system. Departure Departure Impression: Primary Impression: Anaphylaxis Disposition: 01 HOME, SELF-CARE Condition: IMPROVED Referrals: NO PCP (PCP) Patient Instructions: Food Allergy and Anaphylaxis Additional Instructions: Please follow-up with your family physician in the next one to 2 days and to be referred on to the line cleaner for further evaluation of her anaphylaxis, please return immediately if symptoms persist Scripts Prednisone (PREDNISONE) 50 Mg Tablet 1 TAB PO DAILY, #5 TAB Prov: GRACE CHANDLER DO 10/04/17 Epinephrine (Epipen) 0.3 Mg/0.3 Ml Auto.injct 0.3 MG IJ 1X Y for ALLERGIES, #2 SYR Prov: GRACE CHANDLER DO 10/04/17 GRACE CHANDLER DO Oct 04, 2017 00:55
[2017-10-04] MEDS ORDERED: EPINEPHrine 1 MG/ML VIAL IM ONE (01:00)
[2017-10-04] MEDS ORDERED: FAMOTIDINE 20 MG/2 ML VIAL IVP ONE (01:00)
[2017-10-04] MEDS ORDERED: DEXAMETHASONE SOD PHOS 4 MG/ML VIAL IV ONE (01:00)
[2017-10-04] MEDS ORDERED: diphenhydrAMINE 50 MG/ML VIAL IVP ONE (01:15)
[2017-10-04 02:00] VITALS: BP 116/73
[2017-10-04] MEDS ORDERED: EPIPEN0.3 MG/0.3 IJ (02:14)
[2017-10-04] MEDS ORDERED: PRED50TA PO (02:14)
== END 2017-10-04 03:01 | disposition home or self-care (01) ==
LOC: ER 00:47
DX: T78.2XXA Anaphylactic shock, unspecified, initial encounter (principal); L50.9 Urticaria, unspecified; Z88.0 Allergy status to penicillin
CPT/HCPCS: 96372; 96374; 96375; 99284; J0171; J1100; J1200; S0028

== ENCOUNTER 2021-08-18 22:24 | Emergency (ER) | payer OTHER ==
[~2021-08-18] VITALS: Ht 170.2 cm; Wt 90.9 kg
[~2021-08-18 22:24] MED LIST changes: +ALBU2.5V8 INH; +BENZ-8 PO; -BENZ100C15 PO; -DOXY100C2 PO; +DOXY100C3 PO; +EPIPEN0.3 MG/0.3 IJ; +PRED50TA PO; -PROAIR HFA8.5 GM INH
[2021-08-18 22:31] VITALS: BP 146/80
--- NOTE | 2021-08-18 22:53 | PHYS DOC ---
Past Medical History Past Medical History: Asthma, Pancreatitis Past Surgical History: Additional Past Surgical Histo: X2 Smoking Status: Current Every Day Smoker Alcohol Use: None Drug Use: None General Adult EDM: Chief Complaint: ASTHMA HPI: HPI: Patient is a 35 year old female with a history of asthma presenting this evening complaining of shortness of breath that began this evening. Patient denies any fever, unusual coughing or congestion. Reports receiving second dose of Covid vaccine produced by [employer] a month ago. Patient reports tried using her inhaler with no relief. Review of Systems: Review of Systems: Constitutional: Denies fever or chills. [] Eyes: Denies change in visual acuity. [] HENT: Denies nasal congestion or sore throat. [] Respiratory: Reports shortness of breath, denies any unusual coughing Cardiovascular: Denies chest pain or edema. [] GI: Denies abdominal pain, nausea, vomiting, bloody stools or diarrhea. [] : Denies dysuria. [] Musculoskeletal: Denies back pain or joint pain. [] Integument: Denies rash. [] Neurologic: Denies headache, focal weakness or sensory changes. [] Psychiatric: Denies depression or anxiety. [] Heart Score: C/O Chest Pain: N/A Risk Factors: Risk Factors: DM, Current or recent (<one month) smoker, HTN, HLP, family history of CAD, obesity. Risk Scores: Score 0 - 3: 2.5% MACE over next 6 weeks - Discharge Home Score 4 - 6: 20.3% MACE over next 6 weeks - Admit for Clinical Observation Score 7 - 10: 72.7% MACE over next 6 weeks - Early Invasive Strategies Allergies: Allergies: Allergies Coded Allergies Type Severity Reaction Last Updated Verified Penicillins Allergy Unknown 05/16/17 Yes Physical Exam: PE: Constitutional: Well developed, well nourished, no acute distress, non-toxic appearance. [] HENT: Normocephalic, atraumatic, bilateral external ears normal, oropharynx moist, no oral exudates, nose normal. [] Eyes: PERRLA, EOMI, conjunctiva normal, no discharge. [] Neck: Normal range of motion, no tenderness, supple, no stridor. [] Cardiovascular:Heart rate regular rhythm, no murmur [] Lungs & Thorax: Bilateral breath sounds clear to auscultation [] Abdomen: Bowel sounds normal, soft, no tenderness, no masses, no pulsatile masses. [] Skin: Warm, dry, no erythema, no rash. [] Back: No tenderness, no CVA tenderness. [] Extremities: No tenderness, no cyanosis, no clubbing, ROM intact, no edema. [] Neurologic: Alert and oriented X 3, normal motor function, normal sensory function, no focal deficits noted. [] Psychologic: Affect normal, judgement normal, mood normal. [] EKG: EKG: [] Radiology/Procedures: Radiology/Procedures: []PROCEDURE: CHEST AP ONLY Single view chest dated 08/18/2021 11:37 PM: COMPARISON: 05/14/2017 Clinical Indication: None. Findings: Single upright portable exam of the chest was performed. Heart and mediastinal contours are stable. There is some patchy and linear opacity at both lung bases. No pleural effusion. No pneumothorax. IMPRESSION: 1. Mild patchy and linear bibasilar opacity, atelectasis versus early pneumonia. Electronically signed by: Manju Khan MD (08/18/2021 11:38 PM) [facility] [place] DICTATED and SIGNED BY: MANJU KHAN MD DATE: 08/18/21 [id number] 0 Course & Med Decision Making: Course & Med Decision Making Pertinent Labs and Imaging studies reviewed. (See chart for details) This a 35-year-old female patient presenting to the ED today with shortness of breath, symptoms began this evening. History of asthma. Tried using inhaler with no relief. Patient is afebrile, O2 sats 95% on room air on arrival. Chest x-ray noted for atelectasis versus pneumonia. Patient was given a DuoNeb treatment and prednisone in the ED. Lungs are clear. Discharge to home with prednisone and albuterol inhaler. Follow-up with PCP in 1 week Clarisa Disclaimer: Clarisa Disclaimer: This electronic medical record was generated, in whole or in part, using a voice recognition dictation system. Departure Departure Impression: Primary Impression: Acute asthma exacerbation Qualified Codes: J45.21 - Mild intermittent asthma with (acute) exacerbation Disposition: HOME / SELF CARE / HOMELESS Condition: STABLE Referrals: NO PCP (PCP) follow up in 1-2 weeks Patient Instructions: Asthma Attacks, Prevention Additional Instructions: You were evaluated in the emergency room, we put you on steroids, take them as prescribed. Use breathing treatments at home as needed. Please follow-up with your primary care doctor in 1 week Scripts Prednisone (PREDNISONE) 50 Mg Tablet 1 TAB PO DAILY, #4 TAB Prov: NASREEN SOLIMAN APRN 08/18/21 Albuterol Sulfate (Proair Hfa) 8.5 Gm Hfa.aer.ad 2 PUFF IH PRN Q4-6HRS PRN for wheezing for 21 Days, #1 INHALER 0 Refills Prov: NASREEN SOLIMAN APRN 08/18/21 NASREEN SOLIMAN APRN Aug 18, 2021 22:53
[2021-08-18] MEDS ORDERED: predniSONE 20 MG TABLET PO ONE (23:00)
[2021-08-18] MEDS ORDERED: IPRATRPIUM/ALBUTEROL 0.5/2.5MG 3 ML NEBU. NEB ONE (23:00)
--- NOTE | 2021-08-18 23:41 | RAD ---
Single view chest dated 08/18/2021 11:37 PM: COMPARISON: 05/14/2017 Clinical Indication: None. Findings: Single upright portable exam of the chest was performed. Heart and mediastinal contours are stable. T here is some patchy and linear opacity at both lung bases. No pleural effusion. No pneumothorax. IMPRESSION: 1. Mild patchy and linear bibasilar opacity, atelectasis versus early pneumonia. Electronically signed by: Hernan Khan MD (08/18/2021 11:38 PM) [facility]
[2021-08-18] MEDS ORDERED: PRED50TA PO (23:49)
[2021-08-18] MEDS ORDERED: ALBU2.5V8 IH (23:49)
== END 2021-08-19 00:32 | disposition home or self-care (01) ==
LOC: ER 22:24
DX: J45.21 Mild intermittent asthma with (acute) exacerbation (principal); F17.200 Nicotine dependence, unspecified, uncomplicated
CPT/HCPCS: 71045; 94640; 99283; J7512